=== PATIENT | female | born 1970 | race Hispanic/Latino ===

== ENCOUNTER 2021-01-22 22:57 | Inpatient (IN) | payer OTHER, SELFPAY ==
[2021-01-23 00:34] LABS: Absolute Lymphocytes (CBC) 1.8 K/uL (0.7-4.9); Basophils % 0.8 % (0-1.3); Hematocrit 32.8 % (36.0-45.0); Lymphocytes % 15.2 % (15.3-44.8); MPV 7.4 fL (7.6-11.3); RBC Red Blood Cell Count 4.16 M/uL (3.86-4.86)
[2021-01-23 00:48] LABS: Protime INR 1.34
[2021-01-23] MEDS ORDERED: NA CHLORIDE 0.9% 2,000 ML ONE (01:00)
[2021-01-23] MEDS ORDERED: ACETAMINOPHEN 500 MG TAB ONE (01:00)
[2021-01-23] MEDS ORDERED: NA CHLORIDE 0.9% 500 ML ONE (01:00)
[2021-01-23] MEDS ORDERED: METHYLPREDNISOLONE 125 MG INJ ONE ×2 (01:00→12:55)
[2021-01-23 01:05] LABS: ALT/SGPT 29 U/L (12-78); AST/SGOT 33 U/L (15-37); Albumin 2.7 g/dL (3.4-5.0); Alkaline Phosphatase 92 U/L (45-117); BUN Blood Urea Nitrogen 17 mg/dL (7-18); Bicarbonate 26 mmol/L (21-32); Bilirubin Direct 0.3 mg/dL (0-0.2); Bilirubin Total 0.7 mg/dL (0.2-1.0); Ferritin 83.4 ng/mL (8-388); Glucose Level 356 mg/dL (74-106); Magnesium 2.4 mg/dL (1.8-2.4); NT PRO-BNP 1149 pg/mL (<125); Protein, Total 8.9 g/dL (6.4-8.2); Sodium Level 128 mmol/L (136-145); Troponin (Emerg Dept Use Only) < 0.02 ng/mL (0.0-0.045)
[2021-01-23 01:28] LABS: Blood Morphology Comment NOTED (NOT SEEN); Platelet Estimate ADEQ; Polychromasia 1+
[2021-01-23] MEDS ORDERED: NA CHLORIDE 0.9% 50 ML ONE (02:18)
[2021-01-23] MEDS ORDERED: CEFTRIAXONE 1000 MG/VIAL ONE (02:18)
[2021-01-23] MEDS ORDERED: NA CHLORIDE 0.9% 250 ML ONE (02:18)
[2021-01-23] MEDS ORDERED: AZITHROMYCIN 500 MG INJ IVPB ONE (02:18)
--- NOTE | 2021-01-23 02:40 | ER ---
Nurse's Notes [facility] Name: Dina Alcantar Age: 50 yrs Sex: Female : 1970 Arrival Date: 01/22/2021 Time: 22:59 Bed 8 Private MD: Diagnosis: Acute respiratory failure with hypoxia;SARS-associated coronavirus as the cause of diseases classified elsewhere;Pneumonia due to other specified infectious organisms Presentation: 01/23 00:08 Chief complaint: Patient states: SOB, Chest pain, cough, weakness x 5 days. Coronavirus kg screen: Client denies travel out of the [place] in the last 14 days. At this time, unable to obtain information related to travel outside the [place] Client presents with at least one sign or symptom that may indicate coronavirus-19. Standard/surgical mask placed on the client. Provider contacted for isolation considerations. Client reports previous positive COVID test result. Date of collection: January 12, 2021. Ebola Screen: Patient negative for fever greater than or equal to 101.5 degrees Fahrenheit, and additional compatible Ebola Virus Disease symptoms Patient denies exposure to infectious person. Patient denies travel to an Ebola-affected area in the 21 days before illness onset. Initial Sepsis Screen: Does the patient meet any 2 criteria? RR > 20 per min. Temp <36.0*C (96.8*F)) or > 38.3*C (100.9*F). HR > 90 bpm. Does the patient have a suspected source of infection? Yes: Productive cough/pneumonia. Risk Assessment: Do you want to hurt yourself or someone else? Patient reports no desire to harm self or others. 00:08 Method Of Arrival: Wheelchair kg 00:08 Acuity: FERNANDO 2 kg 00:12 Onset of symptoms was January 18, 2021. kg Triage Assessment: 05:48 General: Appears distressed, Behavior is calm, cooperative. Pain: Denies pain. ms4 Cardiovascular: No deficits noted. Respiratory: Reports shortness of breath cough that is. Historical: - Allergies: 01:04 No Known Allergies; sh9 - Immunization history:: Client reports having NOT received the Covid vaccine. - Social history:: Smoking status: Patient denies any tobacco usage or history of. Screenin:51 Abuse screen: Denies threats or abuse. Denies injuries from another. Nutritional ms4 screening: No deficits noted. Tuberculosis screening: No symptoms or risk factors identified. Fall Risk None identified. Assessment: 01:49 Pain: Denies pain. Cardiovascular: No deficits noted. Respiratory: Reports shortness of ms4 breath labored breathing. Vital Signs: 00:08 BP 94 / 62; Pulse 102; Temp 102.9(O); Pulse Ox 47% on R/A; Weight 83.91 kg (R); Height kg 5 ft. 4 in. (162.56 cm) (R); Pain 7/10; 00:14 Pulse Ox 88% on 15 lpm NC; kg 01:50 BP 105 / 61; Pulse 90; Resp 22; Temp 99.1; Pulse Ox 92% on BiPAP; Pain 0/10; ms4 02:49 BP 104 / 67; Pulse 84; Resp 28; Pulse Ox 90% on BiPAP; Pain 0/10; ms4 00:08 Body Mass Index 31.75 (83.91 kg, 162.56 cm) kg ED Course: 01/22 22:59 Patient arrived in ED. bp1 01/23 00:12 Triage completed. kg 00:19 Juan Genao PA is PHCP. cp 00:19 Manuel Rae MD is Attending Physician. cp 00:21 Sharri Vargas, ARIAS is Primary Nurse. sh9 00:40 XRAY Chest (1 view) In Process Unspecified. EDMS 01:51 No provider procedures requiring assistance completed. Inserted saline lock: 20 gauge ms4 in right antecubital area, using aseptic technique. Blood collected. 01:51 O2 via BIPAP Response to oxygen therapy: symptoms improved. ms4 01:51 Patient has correct armband on for positive identification. satellite project site monitor on. Pulse ms4 ox on. NIBP on. 01:54 CT Chest For PE Angio In Process Unspecified. EDMS 02:38 Kirk Sharpe is Hospitalizing Provider. cp Administered Medications: 00:48 Drug: Tylenol 1000 mg Route: PO; sh9 00:48 Drug: NS 0.9% (30 ml/kg) 30 ml/kg Route: IV; Rate: bolus; Site: right antecubital; sh9 00:48 Drug: SOLU-Medrol (methylPrednisoLONE) 125 mg Route: IVP; Site: right antecubital; sh9 02:10 Drug: Rocephin - (cefTRIAXone) 1 grams Route: IVPB; Infused Over: 30 mins; Site: right ms4 antecubital; 02:10 Drug: Zithromax (azithromycin) 500 mg Route: IVPB; Infused Over: 1 hrs; Site: right ms4 antecubital; Outcome: 02:40 Decision to Hospitalize by Provider. cp 15:06 Patient left the ED. bp Signatures: Dispatcher [employer] EDMS Juan Genao PA PA cp Randall Guzman RN RN bp Serena Pierce Kristen, RN RN kg Karen Rausch RN RN ms4 Sharri Vargas RN RN sh9
--- NOTE | 2021-01-23 02:41 | EDPHYS ---
Physician Documentation [facility] Name: Dina Alcantar Age: 50 yrs Sex: Female : 1970 Arrival Date: 01/22/2021 Time: 22:59 Bed 8 Private MD: ED Physician Manuel Rae HPI: 01/23 00:30 This 50 yrs old Female presents to ER via Wheelchair with complaints of Chest cp Pain, Weakness. 00:30 The patient has shortness of breath at rest. cp 00:30 Onset: The symptoms/episode began/occurred 5 day(s) ago. cp 00:30 Duration: The symptoms are continuous, and are steadily getting worse. cp Historical: - Allergies: 01:04 No Known Allergies; sh9 - Immunization history:: Client reports having NOT received the Covid vaccine. - Social history:: Smoking status: Patient denies any tobacco usage or history of. ROS: 00:35 Constitutional: Positive for body aches, Negative for chills, fever, poor PO intake. cp 00:35 Eyes: Negative for injury, pain, redness, and discharge. cp 00:35 ENT: Negative for ear pain, sore throat, difficulty swallowing, difficulty handling secretions. 00:35 Cardiovascular: Positive for chest pain, Negative for edema, palpitations. 00:35 Respiratory: Positive for cough, "sounds productive", shortness of breath, at rest. Negative for wheezing. 00:35 Abdomen/GI: Negative for abdominal pain, nausea, vomiting, and diarrhea. 00:35 Neuro: Positive for weakness, Negative for altered mental status, dizziness, headache. 00:35 All other systems are negative. Exam: 00:37 ECG was reviewed by the Attending Physician. cp 00:40 Constitutional: The patient appears alert, awake, non-diaphoretic, well developed, well cp nourished, in obvious distress, moderately distressed, obviously ill. 00:40 Head/Face: Normocephalic, atraumatic. cp 00:40 Eyes: Periorbital structures: appear normal, Conjunctiva: normal, no exudate, no injection, Sclera: no appreciated abnormality, Lids and lashes: appear normal, bilaterally. 00:40 ENT: External ear(s): are unremarkable, Nose: is normal, Mouth: Lips: moist, Oral mucosa: moist, Posterior pharynx: Airway: no evidence of obstruction, patent. 00:40 Neck: ROM/movement: is normal, is supple, no meningismus, no nuchal rigidity. 00:40 Chest/axilla: Inspection: normal, Palpation: is normal, no crepitus, no tenderness. 00:40 Cardiovascular: Rate: tachycardic, Rhythm: regular, Edema: is not appreciated, JVD: is not appreciated. 00:40 Respiratory: moderate respiratory distress is noted, Respirations: labored breathing, that is moderate, shallow respirations, that is moderate, Breath sounds: decreased breath sounds, that are mild, diffuse, stridor, is not appreciated, wheezing: is not appreciated. 00:40 Abdomen/GI: Inspection: abdomen appears normal, Palpation: abdomen is soft and non-tender, in all quadrants. 00:40 Back: CVA tenderness, is absent. 00:40 Skin: no rash present. 00:40 Neuro: Orientation: to person, place \\T\\ time. Mentation: is normal, Motor: moves all fours, general weakness with no focal deficits, Sensation: is normal. Vital Signs: 00:08 BP 94 / 62; Pulse 102; Temp 102.9(O); Pulse Ox 47% on R/A; Weight 83.91 kg (R); Height kg 5 ft. 4 in. (162.56 cm) (R); Pain 7/10; 00:14 Pulse Ox 88% on 15 lpm NC; kg 01:50 BP 105 / 61; Pulse 90; Resp 22; Temp 99.1; Pulse Ox 92% on BiPAP; Pain 0/10; ms4 02:49 BP 104 / 67; Pulse 84; Resp 28; Pulse Ox 90% on BiPAP; Pain 0/10; ms4 00:08 Body Mass Index 31.75 (83.91 kg, 162.56 cm) kg MDM: 00:30 Patient medically screened. cp 02:35 Data reviewed: vital signs, nurses notes, lab test result(s), EKG, radiologic studies, cp CT scan, plain films, and as a result, I will admit patient. 02:35 Test interpretation: by ED physician or midlevel provider: ECG, plain radiologic cp studies. 01/23 00:20 Order name: Basic Metabolic Panel; Complete Time: 01:23 cp 01/23 01:23 Interpretation: Normal except: NA 128; CL 96; GLUC 356; GFR 49; CA 7.9. cp 01/23 00:20 Order name: CBC with Diff; Complete Time: : cp 01/23 01:24 Interpretation: Normal except: WBC 12.10; HGB 10.5; HCT 32.8; MCV 78.8; MCH 25.3; PLT cp 440; RDW 17.3; MPV 7.4; LONDON% 77.7; LYM% 15.2; NEUT A 9.4. 01/23 00:20 Order name: LFT's; Complete Time: 01: cp 01/23 02:13 Interpretation: Normal except: BILID 0.3; TP 8.9; ALB 2.7; GLOB 6.2; A/G 0.4. cp 01/23 00:20 Order name: Magnesium; Complete Time: 01: cp 01/23 00:20 Order name: NT PRO-BNP; Complete Time: 01: cp 01/23 02:13 Interpretation: Abnormal: NT PRO-BNP 1149. cp 01/23 00:20 Order name: PT-INR; Complete Time: : cp 01/23 00:20 Order name: Troponin (emerg Dept Use Only); Complete Time: : cp 01/23 00:20 Order name: Ferritin; Complete Time: : cp 01/23 00:33 Order name: Blood Culture Adult (2); Complete Time: 13:02 cp 01/23 00:33 Order name: Lactate; Complete Time: : cp 01/23 01:23 Interpretation: Abnormal: LAC 2.3. cp 01/23 00:33 Order name: Procalcitonin; Complete Time: : cp 01/23 02:14 Interpretation: Abnormal: Procalcitonin 0.32. cp 01/23 00:33 Order name: Urine Microscopic Only cp 01/23 00:42 Order name: C-Reactive Protein; Complete Time: : EDMS 01/23 02:14 Interpretation: Abnormal: C-REACTIVE PROT 238.00. cp 01/23 00:43 Order name: Manual Differential; Complete Time: : EDMS 01/23 02:14 Interpretation: Normal except: BANDS [F] 7; LYM 9. cp 01/23 01:23 Order name: ABG; Complete Time: 13:02 01/23 01:42 Order name: SARS-COV-2 RT PCR; Complete Time: 02:05 [facility] 01/23 02:05 Interpretation: Results reviewed. 01/23 04:00 Order name: Lactate Sepsis 2 HR Follow-up; Complete Time: 13:02 [facility] 01/23 05:20 Order name: CBC with Automated Diff; Complete Time: 13:02 [facility] 01/23 05:31 Order name: Lactate; Complete Time: 13:02 [facility] 01/23 05:55 Order name: T4 Free; Complete Time: 13:02 [facility] 01/23 05:55 Order name: Thyroid Stimulating Hormone; Complete Time: 13:02 [facility] 01/23 05:57 Order name: Hemoglobin A1c; Complete Time: 13:02 [facility] 01/23 06:10 Order name: Procalcitonin; Complete Time: 13:02 [facility] 01/23 06:13 Order name: Comprehensive Metabolic Panel; Complete Time: 13:02 [facility] 01/23 00:20 Order name: XRAY Chest (1 view); Complete Time: 13:02 01/23 00:20 Order name: EKG; Complete Time: 00:21 01/23 00:20 Order name: Cardiac monitoring 01/23 00:20 Order name: EKG - Nurse/Tech 01/23 00:20 Order name: IV Saline Lock 01/23 00:20 Order name: Labs collected and sent 01/23 00:20 Order name: O2 Per Protocol 01/23 00:20 Order name: O2 Sat Monitoring 01/23 00:33 Order name: Urine Dipstick-Ancillary (obtain specimen) 01/23 00:33 Order name: Urine Test (obtain specimen) 01/23 00:33 Order name: CT Chest For PE Angio; Complete Time: 13:02 01/23 02:20 Order name: CONS Physician Consult [facility] 01/23 03:48 Order name: CPAP 01/23 06:13 Order name: Phosphorus; Complete Time: 13:02 [facility] 01/23 06:13 Order name: Lipid Profile; Complete Time: 13:02 [facility] 01/23 06:13 Order name: C-Reactive Protein; Complete Time: 13:02 [facility] 01/23 06:13 Order name: Magnesium; Complete Time: 13:02 [facility] 01/23 06:13 Order name: Transferrin Sat/Iron Binding; Complete Time: 13:02 EDMS 01/23 06:13 Order name: Ferritin; Complete Time: 13: EDMS 01/23 06:13 Order name: Folic Acid, (Folate); Complete Time: 13:02 EDMS 01/23 06:13 Order name: Vitamin B12 Level; Complete Time: 13: EDMS 01/23 07:54 Order name: Glucose, Ancillary Testing; Complete Time: 13: EDMS 01/23 08:55 Order name: Glucose Level; Complete Time: 13: EDMS EC:37 Rate is 104 beats/min. Rhythm is regular. [place] interval is normal. QRS interval is cp normal. QT interval is normal. T waves are Inverted in lead aVR. Interpreted by me. Reviewed by me. Administered Medications: 00:48 Drug: Tylenol 1000 mg Route: PO; sh9 00:48 Drug: NS 0.9% (30 ml/kg) 30 ml/kg Route: IV; Rate: bolus; Site: right antecubital; sh9 00:48 Drug: SOLU-Medrol (methylPrednisoLONE) 125 mg Route: IVP; Site: right antecubital; sh9 02:10 Drug: Rocephin - (cefTRIAXone) 1 grams Route: IVPB; Infused Over: 30 mins; Site: right ms4 antecubital; 02:10 Drug: Zithromax (azithromycin) 500 mg Route: IVPB; Infused Over: 1 hrs; Site: right ms4 antecubital; Disposition: 01/24 13:01 Co-signature as Attending Physician, Manuel Rae MD. pknellie Disposition Summary: 01/23/21 02:40 Hospitalization Ordered Hospitalization Status: Inpatient Admission cp Provider: Kirk Sharpe cp Condition: Serious cp Problem: new cp Symptoms: have improved cp Bed/Room Type: Standard cp Location: Intensive Care Unit(01/23/21 05:52) tl1 Room Assignment: 2-(01/23/21 05:52) tl1 Diagnosis - Acute respiratory failure with hypoxia cp - SARS-associated coronavirus as the cause of diseases classified elsewhere cp - Pneumonia due to other specified infectious organisms cp Forms: - Medication Reconciliation Form cp - SBAR form cp Signatures: Dispatcher [employer] EDAR Manuel Rae MD MD pkl Lasagna, Tonya, RN RN tl1 Juan Genao PA PA cp Stroud, Mikaela RN RN ms4 Sharri Vargas RN RN sh9 Corrections: (The following items were deleted from the chart) 01/23 00:41 00:34 C-REACTIVE PROTEIN+C.LAB.BRZ ordered. EDMS EDMS 00:56 00:14 CORONAVIRUS+MR.LAB.BRZ ordered. EDMS EDMS 05:02 02:40 Telemetry/MedSurg (Inpatient) cp tl1 05:02 02:40 cp tl1 05:52 05:02 [facility] ER HOLD tl1 tl1 05:52 05:02 ERHOLD- tl1 tl1
[2021-01-23 02:46] LABS: Arterial Blood Carboxyhemoglob 1.8 % (0-1.5); Blood Gas Oxyhemoglobin 88.1 % (94-97); Blood O2 Saturation 90.5 % (92-98.5)
--- NOTE | 2021-01-23 03:05 | P.HP ---
Certification for Inpatient Patient admitted to: Inpatient With expected LOS: >2 Midnights Patient will require the following post-hospital care: None Practitioner: I am a practitioner with admitting privileges, knowledge of patient current condition, hospital course, and medical plan of care. Services: Services provided to patient in accordance with Admission requirements found in Title 42 Section 412.3 of the Code of Federal Regulations Patient History Date of Service: 01/23/21 Reason for admission: covid pneumonia History of Present Illness: Ms. Alcantar is a 50 yo F who presents with general malaise and diarrhea, and RA sats of 47% and T103F on arrival. Her symptoms began a few days ago and she was diagnosed with COVID around the same time. She came today because her daughter wanted her to get checked out. Reports poor appetite. Denies SOB, cough, N/V. CT showed extensive bilateral ground glass opacities with multifocal consolidation and small left pleural effusion, findings suggestive of atypical/multifocal pneumonia and compatible with covid. No evidence of pulmonary embolism. WBC 12.1, H/H 10.5, MCV 78.8, Na 128, Cl 96, GFR 49, Glu 356, Lactate 2.3, CRP 238, BNP 1149, procal 0.32. Received sepsis protocol fluid bolus, ceftriaxone and azithromycin and steroids in the ED. - Past Medical/Surgical History Has patient received pneumonia vaccine in the past: No Diabetic: No Past Medical History: Patient denies medical history -: C section - Social History Smoking Status: Never smoker Alcohol use: No CD- Drugs: No Caffeine use: No Place of Residence: Home Review of Systems 10-point ROS is otherwise unremarkable General: Malaise Gastrointestinal: Diarrhea Physical Examination - Physical Exam General: Alert, Oriented x3, Cooperative HEENT: Atraumatic, PERRLA, Mucous membr. moist/pink, EOMI, Sclerae nonicteric Neck: Supple, 2+ carotid pulse no bruit, No LAD, Without JVD or thyroid abnormality Respiratory: Diminished, Rhonchi/gurgles Cardiovascular: Regular rate/rhythm, Normal S1 S2 Gastrointestinal: Normal bowel sounds, No tenderness Musculoskeletal: No tenderness Integumentary: No rashes Neurological: Normal speech, Normal strength at 5/5 x4 extr, Normal tone, Normal affect - Studies Laboratory Data (last 24 hrs) 01/23/21 00:09: PT 15.4 H, INR 1.34 01/23/21 00:09: WBC 12.10 H, Hgb 10.5 L, Hct 32.8 L, Plt Count 440 H 01/23/21 00:09: Sodium 128 L, Potassium 4.0, BUN 17, Creatinine 1.17, Glucose 356 H, Magnesium 2.4, Total Bilirubin 0.7, AST 33, ALT 29, Alkaline Phosphatase 92 Assessment and Plan - Problems (Diagnosis) (1) Pneumonia due to COVID-19 virus Current Visit: Yes Status: Acute (2) Hyperglycemia Current Visit: Yes Status: Acute (3) Anemia Current Visit: Yes Status: Chronic Qualifiers: Anemia type: iron deficiency Iron deficiency anemia type: unspecified iron deficiency Qualified Code(s): D50.9 - Iron deficiency anemia, unspecified (4) Dehydration Current Visit: Yes Status: Acute (5) Pleural effusion Current Visit: Yes Status: Acute - Plan pulm consulted, respiratory consulted, currently stable on CPAP on tele continue IV steroids, covid supplements, ivermectin barictinib ordered daily procal, CRP, ferritin, repeat lactate pending tylenol PRN for fever sliding scale insulin and accuchecks, A1c pending anemia workup pending DVT ppx Discharge Plan: Home Plan to discharge in: Greater than 2 days - Advance Directives Does patient have a Living Will: No Does patient have a Durable POA for Healthcare: No - Code Status/Comfort Care Code Status Assessed: Yes (full code ) Critical Care: No Time Spent Managing Pts Care (In Minutes): 70
--- NOTE | 2021-01-23 03:12 | P.INFCA ---
Sepsis Focused Assessment - Focused Assessment Complete? Sepsis Focused Assessment Completed?: Yes - Sepsis Screen Result Severe Sepsis: Negative Septic Shock: Negative - Evaluation Current stage of sepsis: Ruled out Reason for ruling out sepsis: vitals improved - Vital Signs Reviewed: Yes - Examination Heart: Regular rate/rhythm Lungs: Diminished air movement, Rhonchi Peripheral pulses: 3+ Normal Peripheral pulse location: Radial Capillary refill: <2 Seconds Skin examination: Normal turgor
[2021-01-23] MEDS ORDERED: IVERMECTIN 3 MG TABLET PO SCH (04:14)
[2021-01-23] MEDS ORDERED: ACETAMINOPHEN 500 MG TAB PO PRN (04:14)
[2021-01-23] MEDS ORDERED: ONDANSETRON 4 MG/2 ML VIAL IV PRN (04:14)
[2021-01-23] MEDS ORDERED: MORPHINE 2 MG/ML SYR IV PRN ×2 (04:14→14:00)
[2021-01-23 05:17] LABS: Basophils % 0.5 % (0-1.3); Lymphocytes % 10.2 % (15.3-44.8); MPV 7.4 fL (7.6-11.3)
[2021-01-23 05:55] LABS: Thyroid Stimulating Hormone 11.2 uIU/mL (0.360-3.740)
[2021-01-23 06:06] LABS: Albumin 2.2 g/dL (3.4-5.0); Bilirubin Total 0.6 mg/dL (0.2-1.0); Ferritin 83.6 ng/mL (8-388); Folic Acid, (Folate) 19.8 ng/mL (3.1-17.5); Magnesium 2.2 mg/dL (1.8-2.4); Phosphorus 2.4 mg/dL (2.5-4.9); Potassium 3.9 mmol/L (3.5-5.1); Protein, Total 7.1 g/dL (6.4-8.2)
[2021-01-23] MEDS ORDERED: INSULIN -REGULAR HUMAN 50 UNIT/0.5 ML ML SQ SCH (07:30)
--- NOTE | 2021-01-23 08:59 | RAD REPORT ---
EXAM DESCRIPTION: RAD - Chest Single View - 01/23/2021 12:40 am CLINICAL HISTORY: SOB Chest pain. COMPARISON: No comparisons FINDINGS: Portable technique limits examination quality. Extensive bilateral pulmonary opacities are present likely indicating underlying pneumonia or COVID-1 9. The heart is normal in size. No displaced fractures.
[2021-01-23] MEDS: ZINC SULFATE 220 MG CAP PO SCH (09:00)
[2021-01-23] MEDS: METHYLPREDNISOLONE 125 MG INJ IV SCH ×2 (09:00→20:14)
[2021-01-23] MEDS: VITAMIN D 1000 UNIT TAB PO SCH (09:00)
[2021-01-23] MEDS: ASPIRIN EC 81 MG TAB PO SCH (09:00)
[2021-01-23] MEDS: FAMOTIDINE 20 MG TAB PO SCH ×2 (09:00→20:11)
[2021-01-23] MEDS: BARICITINIB 2 MG TABLET PO SCH (09:00)
[2021-01-23] MEDS: IVERMECTIN 3 MG TABLET PO SCH (09:00)
[2021-01-23] MEDS: ASCORBIC ACID 500 MG TABLET PO SCH ×4 (09:00→20:12)
[2021-01-23] MEDS: THIAMINE HCL 100 MG TABLET PO SCH (09:00)
[2021-01-23] MEDS ORDERED: GLUCAGON 1 MG/VIAL IM PRN (10:24)
[2021-01-23] MEDS ORDERED: D50W 25 GM/50 ML SYRINGE IV PRN (10:24)
[2021-01-23] MEDS: INSULIN GLARGINE 100 UNITS/ML SQ SCH ×2 (10:24→21:31)
[2021-01-23] MEDS ORDERED: CALCIUM GLUC 10% INJ 9.3 MEQ in NA CHLORIDE 0.9% 100 ML IV ONE (10:26)
--- NOTE | 2021-01-23 11:45 | RAD REPORT ---
EXAM DESCRIPTION: CT Angiography Chest With Intravenous Contrast CLINICAL HISTORY: The patient is 50 years old and is Female; SOB TECHNIQUE: Axial computed tomographic angiography images of the chest with intravenous contrast. S agittal and coronal reformatted images were created and reviewed. This CT exam was performed using one or more of the following dose reduction techniques: automated exposure control, adjustment of t he mA and/or kV according to patient size, and/or use of iterative reconstruction technique. MIP re constructed images were created and reviewed. COMPARISON: No relevant prior studies available. FINDINGS: Pulmonary arteries: Unremarkable. No pulmonary embolism. Aorta: No acute findings. No thoracic aortic aneurysm. Lungs: Unremarkable. No mass. No consolidation. Pleural space: Extensive bilateral groundglass opacities with multifocal consolidation. Small le ft pleural effusion. No pneumothorax. Heart: Unremarkable. No cardiomegaly. No significant pericardial effusion. No evidence of RV dysfunction. Mediastinum: Prominent/mildly enlarged mediastinal lymph nodes which may be reactive. Bones/joints: No acute fracture. No dislocation. Soft tissues: Unremarkable. Lymph nodes: See above. IMPRESSION: 1. Extensive bilateral groundglass opacities with multifocal consolidation. Small left pleural effusion. Findings are suggestive of atypical/multifocal pneumonia and compatible with Cov id. 2. Prominent/mildly enlarged mediastinal lymph nodes which may be reactive. 3. No evidence of pulmonary embolism. Electronically signed by: Ilya Richard MD 01/23/2021 2:36 AM CDT Due to temporary technical issues with the PACS/Fluency reporting system, reports are being signed by the in house radiologist without review as a courtesy to ensure prompt reporting. The interpreting r adiologist is fully responsible for the content of the report.
--- NOTE | 2021-01-23 12:46 | P.PN ---
Subjective Date of Service: 01/23/21 Chief Complaint: covid pneumonia Subjective: Improving (feels better, less fatigued. breathing is about the same. on BiPAP) Review of Systems 10-point ROS is otherwise unremarkable Physical Examination - Vital Signs Blood Pressure: 98/67 Pulse: 81 Respirations: 24 Pulse Ox (%): 91 - Physical Exam General: Alert, Oriented x3, Cooperative HEENT: Atraumatic, Normocephalic Neck: Supple Respiratory: Diminished, Other (on BiPAP) Cardiovascular: Regular rate/rhythm, Normal S1 S2 Capillary refill: <2 Seconds Gastrointestinal: Normal bowel sounds, Soft and benign, Non-distended, No tenderness Musculoskeletal: No clubbing, No swelling Integumentary: No rashes, No breakdown Neurological: Normal speech, Normal tone, Normal affect - Studies Laboratory Data (last 24 hrs) 01/23/21 00:09: PT 15.4 H, INR 1.34 01/23/21 00:09: WBC 12.10 H, Hgb 10.5 L, Hct 32.8 L, Plt Count 440 H 01/23/21 00:09: Sodium 128 L, Potassium 4.0, BUN 17, Creatinine 1.17, Glucose 356 H, Magnesium 2.4, Total Bilirubin 0.7, AST 33, ALT 29, Alkaline Phosphatase 92 Assessment And Plan - Current Problems (Diagnosis) (1) Pneumonia due to COVID-19 virus Current Visit: Yes Status: Acute (2) Hyperglycemia Current Visit: Yes Status: Acute (3) Anemia Current Visit: Yes Status: Chronic Qualifiers: Anemia type: iron deficiency Iron deficiency anemia type: unspecified iron deficiency Qualified Code(s): D50.9 - Iron deficiency anemia, unspecified - Plan pulm consulted, respiratory consulted, on BiPAP now on tele continue IV steroids, covid supplements, ivermectin barictinib ordered trend inflammatory markers tylenol PRN for fever sliding scale insulin and accuchecks, A1c >13.9. pt is insulin naive. start lantus and titrate as needed iron supplement started DVT ppx Discharge Plan: Home Plan to discharge in: Greater than 2 days - Code Status/Comfort Care Code Status Assessed: Yes Code Status: Full Code Time Spent Managing PTS Care (In Minutes): 35
--- NOTE | 2021-01-23 12:53 | P.CNS ---
Date of Consult: 01/23/21 Reason for Consult: Coronavirus pneumonia Chief Complaint: covid pneumonia History of Present Illness: Patient is 50 years of age admitted with general malaise diarrhea hypoxemia symptoms started a few days ago was diagnosed with Covid as poor appetite CT scan consistent with coronavirus pneumonia Allergies No Known Allergies Allergy (Unverified 01/23/21 03:59) - Past Medical/Surgical History Diabetic: No -: C section - Social History Alcohol use: No CD- Drugs: No Caffeine use: No Place of Residence: Home Review of Systems General: Malaise Gastrointestinal: Diarrhea Physical Examination Temp Pulse Resp BP Pulse Ox 81 24 H 98/67 91 01/23/21 12:47 01/23/21 12:47 01/23/21 12:47 01/23/21 12:47 General: Alert, Oriented x3, Cooperative Laboratory Data (last 24 hrs) 01/23/21 00:09: PT 15.4 H, INR 1.34 01/23/21 00:09: WBC 12.10 H, Hgb 10.5 L, Hct 32.8 L, Plt Count 440 H 01/23/21 00:09: Sodium 128 L, Potassium 4.0, BUN 17, Creatinine 1.17, Glucose 356 H, Magnesium 2.4, Total Bilirubin 0.7, AST 33, ALT 29, Alkaline Phosphatase 92 - Problems (1) Pneumonia due to COVID-19 virus Current Visit: Yes Status: Acute Plan: Age 50 admitted with coronavirus pneumonia and diarrhea she is on 75% FiO2 all labs reviewed agree with the present management including use of steroids and Barcitinib
[2021-01-23] MEDS ORDERED: ASCORBIC ACID 500 MG TABLET ONE (12:55)
[2021-01-23] MEDS ORDERED: VITAMIN D 1000 UNIT TAB ONE (12:56)
[2021-01-23] MEDS ORDERED: ZINC SULFATE 220 MG CAP ONE (12:56)
[2021-01-23] MEDS ORDERED: THIAMINE HCL 100 MG TABLET ONE (12:56)
[2021-01-23] MEDS ORDERED: ASPIRIN EC 81 MG TAB PO ONE (12:56)
[2021-01-23] MEDS ORDERED: INSULIN GLARGINE 100 UNITS/ML SQ ONE (12:56)
[2021-01-23] MEDS ORDERED: FAMOTIDINE 20 MG TAB ONE (12:57)
[2021-01-23] MEDS ORDERED: CALCIUM GLUCONATE 1 GM IVPB 1 GM/50 ML BAG IV ONE (12:57)
[2021-01-23] MEDS: RIVAROXABAN 20 MG TABLET PO SCH (16:45)
[2021-01-23] MEDS: INSULIN -REGULAR HUMAN 50 UNIT/0.5 ML ML SQ SCH ×2 (16:47→21:30)
[2021-01-23] MEDS ORDERED: RIVAROXABAN 20 MG TABLET PO SCH (17:00)
[2021-01-23 17:04] LABS: Urine Appearance CLEAR (Clear); Urine Bilirubin NEGATIVE (Negative); Urine Blood 3+ (Negative); Urine Color YELLOW (Yellow); Urine Glucose 3+ (Negative); Urine Protein NEGATIVE (Negative); Urine Specific Gravity 1.025 (1.005-1.030)
[2021-01-23 17:10] LABS: Urine Microscopic Reflex ORDER UMIC
[2021-01-23 17:13] LABS: Urine Bacteria <20 /HPF (<20); Urine Mucus 1+ /HPF (NONE SEEN)
[2021-01-23] MEDS: FERROUS SULFATE 325 MG TAB PO SCH (20:11)
[2021-01-24 06:22] LABS: Absolute Lymphocytes (CBC) 0.9 K/uL (0.7-4.9); Basophils % 0.2 % (0-1.3); Hematocrit 26.5 % (36.0-45.0); Lymphocytes % 9.3 % (15.3-44.8); MPV 7.7 fL (7.6-11.3); RBC Red Blood Cell Count 3.33 M/uL (3.86-4.86)
[2021-01-24 06:25] VITALS: BMI 35.4
[2021-01-24 06:56] LABS: Albumin 2.2 g/dL (3.4-5.0); Bilirubin Total 0.3 mg/dL (0.2-1.0); Phosphorus 1.6 mg/dL (2.5-4.9); Potassium 3.9 mmol/L (3.5-5.1); Protein, Total 7.2 g/dL (6.4-8.2)
[2021-01-24 06:57] LABS: Magnesium 2.9 mg/dL (1.8-2.4)
[2021-01-24] MEDS: INSULIN -REGULAR HUMAN 50 UNIT/0.5 ML ML SQ SCH ×4 (09:54→20:30)
[2021-01-24] MEDS: ZINC SULFATE 220 MG CAP PO SCH (09:57)
[2021-01-24] MEDS: FAMOTIDINE 20 MG TAB PO SCH ×2 (09:57→20:31)
[2021-01-24] MEDS: THIAMINE HCL 100 MG TABLET PO SCH (09:57)
[2021-01-24] MEDS: ASCORBIC ACID 500 MG TABLET PO SCH ×4 (09:57→20:31)
[2021-01-24] MEDS: ASPIRIN EC 81 MG TAB PO SCH (09:57)
[2021-01-24] MEDS: METHYLPREDNISOLONE 125 MG INJ IV SCH ×2 (10:04→20:29)
[2021-01-24] MEDS: VITAMIN D 1000 UNIT TAB PO SCH (10:04)
[2021-01-24] MEDS: FERROUS SULFATE 325 MG TAB PO SCH ×2 (10:04→20:31)
[2021-01-24] MEDS: BARICITINIB 2 MG TABLET PO SCH (10:09)
[2021-01-24] MEDS: BENZONATATE 100 MG CAP PO PRN ×2 (12:47→20:31)
--- NOTE | 2021-01-24 13:04 | P.PN ---
Subjective Date of Service: 01/24/21 Chief Complaint: covid pneumonia Patient currently requiring CPAP and 60% FiO2. Physical Examination - Vital Signs Temperature: 97.8 F Blood Pressure: 98/63 Pulse: 66 Respirations: 11 Pulse Ox (%): 94 - Physical Exam General: Oriented x3 Neck: JVD not distended Respiratory: Other (Mildly labored breathing) Cardiovascular: Regular rate/rhythm, Normal S1 S2 Gastrointestinal: Soft and benign, Non-distended Musculoskeletal: No swelling Integumentary: No rashes Neurological: Normal strength at 5/5 x4 extr, Cranial nerves 3-12 intact Assessment And Plan - Current Problems (Diagnosis) (1) Uncontrolled type 2 diabetes mellitus with hyperglycemia Current Visit: Yes Status: Acute (2) Acute respiratory failure with hypoxia Current Visit: Yes Status: Acute (3) Pneumonia due to COVID-19 virus Current Visit: Yes Status: Acute (4) Iron deficiency anemia Current Visit: Yes Status: Acute - Plan pulm input appreciated. Continue CPAP. continue IV steroids, covid supplements, ivermectin Continue barictinib. trend inflammatory markers tylenol PRN for fever sliding scale insulin and accuchecks, A1c >13.9. pt is insulin naive. Patient with severe hyperglycemia. Titrate insulin iron supplement started DVT ppx
--- NOTE | 2021-01-24 15:07 | P.PN ---
Subjective Date of Service: 01/24/21 Chief Complaint: covid pneumonia Subjective: Improving (Patient is feeling better still on high flow oxygen 15 L) Review of Systems General: Weakness Respiratory: Shortness of Breath Physical Examination - Vital Signs Temperature: 97.8 F Blood Pressure: 98/63 Pulse: 66 Respirations: 11 Pulse Ox (%): 94 - Physical Exam General: In no apparent distress, Oriented x3, Cooperative Assessment & Plan - Problems (Diagnosis) (1) Pneumonia due to COVID-19 virus Current Visit: Yes Status: Acute Plan: Respiratory failure subjectively feeling better on high flow oxygen patient is on steroids ivermectin and Barcitinib blood sugars elevated CT scan shows diffuse groundglass changes
[2021-01-24] MEDS: RIVAROXABAN 20 MG TABLET PO SCH (17:22)
[2021-01-24] MEDS: MELATONIN 5 MG TABLET PO PRN (20:31)
[2021-01-24] MEDS ORDERED: INSULIN GLARGINE 100 UNITS/ML SQ SCH ×2 (21:00)
[2021-01-25 05:20] LABS: Absolute Lymphocytes (CBC) 0.6 K/uL (0.7-4.9); Basophils % 0.2 % (0-1.3); Hematocrit 28.2 % (36.0-45.0); Lymphocytes % 5.9 % (15.3-44.8); MPV 7.8 fL (7.6-11.3); RBC Red Blood Cell Count 3.55 M/uL (3.86-4.86)
[2021-01-25 06:03] LABS: Albumin 2.3 g/dL (3.4-5.0); Bilirubin Total 0.3 mg/dL (0.2-1.0); C-Reactive Protein 81.4 mg/L (<3.00); Magnesium 3.2 mg/dL (1.8-2.4); Phosphorus 1.6 mg/dL (2.5-4.9); Potassium 4.1 mmol/L (3.5-5.1); Protein, Total 7.1 g/dL (6.4-8.2)
[2021-01-25] MEDS: INSULIN -REGULAR HUMAN 50 UNIT/0.5 ML ML SQ SCH ×4 (08:55→22:17)
[2021-01-25] MEDS: METHYLPREDNISOLONE 125 MG INJ IV SCH ×2 (08:56→22:15)
[2021-01-25] MEDS: INSULIN GLARGINE 100 UNITS/ML SQ SCH ×2 (08:56→22:15)
[2021-01-25] MEDS: VITAMIN D 1000 UNIT TAB PO SCH (08:56)
[2021-01-25] MEDS: BARICITINIB 2 MG TABLET PO SCH (08:57)
[2021-01-25] MEDS: ZINC SULFATE 220 MG CAP PO SCH (08:57)
[2021-01-25] MEDS: FERROUS SULFATE 325 MG TAB PO SCH ×2 (08:57→22:15)
[2021-01-25] MEDS: ASCORBIC ACID 500 MG TABLET PO SCH ×4 (08:57→22:15)
[2021-01-25] MEDS: THIAMINE HCL 100 MG TABLET PO SCH (08:57)
[2021-01-25] MEDS: FAMOTIDINE 20 MG TAB PO SCH ×2 (08:57→22:15)
[2021-01-25] MEDS: ASPIRIN EC 81 MG TAB PO SCH (08:58)
[2021-01-25] MEDS: IVERMECTIN 3 MG TABLET PO SCH (08:58)
[2021-01-25] MEDS: POTASS/SODIUM PHOSPHATE 1 PKT POWD.PACK PO SCH ×3 (11:00→16:13)
--- NOTE | 2021-01-25 11:08 | P.PN ---
Subjective Date of Service: 01/25/21 Chief Complaint: covid pneumonia Patient 's oxygen requirement is worsening. Currently on CPAP for 75% FiO2 Physical Examination - Vital Signs Temperature: 97.6 F Blood Pressure: 110/74 Pulse: 70 Respirations: 26 Pulse Ox (%): 87 - Physical Exam General: Alert, In no apparent distress HEENT: Other (CPAP) Respiratory: Other (Nonlabored breathing) Cardiovascular: Regular rate/rhythm, Normal S1 S2 Gastrointestinal: Soft and benign, Non-distended Musculoskeletal: No swelling Integumentary: No rashes Neurological: Normal strength at 5/5 x4 extr Assessment And Plan - Current Problems (Diagnosis) (1) Uncontrolled type 2 diabetes mellitus with hyperglycemia Current Visit: Yes Status: Acute (2) Acute respiratory failure with hypoxia Current Visit: Yes Status: Acute (3) Pneumonia due to COVID-19 virus Current Visit: Yes Status: Acute (4) Iron deficiency anemia Current Visit: Yes Status: Acute - Plan puContinue CPAP. Titrate FiO2 continue IV steroids, covid supplements, ivermectin Continue barictinib. trend inflammatory markers sliding scale insulin and accuchecks, A1c >13.9. pt is insulin naive. Patient with severe hyperglycemia. Lantus titrated up to 30 units bid. iron supplement started. Monitor and replete electrolytes as needed. Replete phosphorus. DVT ppx
[2021-01-25] MEDS ORDERED: POTASS/SODIUM PHOSPHATE 1 PKT POWD.PACK PO ONE (12:00)
[2021-01-25] MEDS: RIVAROXABAN 20 MG TABLET PO SCH (16:13)
[2021-01-26 06:29] LABS: Absolute Lymphocytes (CBC) 0.6 K/uL (0.7-4.9); Basophils % 0.2 % (0-1.3); Hematocrit 28.9 % (36.0-45.0); Lymphocytes % 5.2 % (15.3-44.8); MPV 7.7 fL (7.6-11.3); RBC Red Blood Cell Count 3.66 M/uL (3.86-4.86)
[2021-01-26 06:53] LABS: ALT/SGPT 37 U/L (12-78); AST/SGOT 55 U/L (15-37); Albumin 2.5 g/dL (3.4-5.0); Alkaline Phosphatase 219 U/L (45-117); BUN Blood Urea Nitrogen 20 mg/dL (7-18); Bicarbonate 28 mmol/L (21-32); Bilirubin Total 0.4 mg/dL (0.2-1.0); Glucose Level 318 mg/dL (74-106); Potassium 3.9 mmol/L (3.5-5.1); Protein, Total 7.2 g/dL (6.4-8.2); Sodium Level 140 mmol/L (136-145)
[2021-01-26] MEDS: ASCORBIC ACID 500 MG TABLET PO SCH ×4 (08:58→19:50)
[2021-01-26] MEDS: VITAMIN D 1000 UNIT TAB PO SCH (08:58)
[2021-01-26] MEDS: INSULIN GLARGINE 100 UNITS/ML SQ SCH ×2 (08:59→21:00)
[2021-01-26] MEDS: FERROUS SULFATE 325 MG TAB PO SCH ×2 (08:59→19:48)
[2021-01-26] MEDS: ZINC SULFATE 220 MG CAP PO SCH (08:59)
[2021-01-26] MEDS: FAMOTIDINE 20 MG TAB PO SCH ×2 (08:59→19:48)
[2021-01-26] MEDS: THIAMINE HCL 100 MG TABLET PO SCH (08:59)
[2021-01-26] MEDS ORDERED: POTASSIUM CL SA 10 MEQ TAB PO ONE (09:00)
[2021-01-26] MEDS: INSULIN -REGULAR HUMAN 50 UNIT/0.5 ML ML SQ SCH ×4 (09:11→21:15)
[2021-01-26] MEDS: BENZONATATE 100 MG CAP PO PRN ×2 (10:41→19:51)
[2021-01-26] MEDS: ASPIRIN EC 81 MG TAB PO SCH (10:41)
[2021-01-26] MEDS: METHYLPREDNISOLONE 125 MG INJ IV SCH ×2 (10:41→19:48)
--- NOTE | 2021-01-26 11:21 | P.PN ---
Subjective Date of Service: 01/26/21 Chief Complaint: covid pneumonia No change still on high concentrations of oxygen Review of Systems General: Weakness Respiratory: Shortness of Breath Physical Examination - Vital Signs Temperature: 97.3 F Blood Pressure: 106/62 Pulse: 83 Respirations: 23 Pulse Ox (%): 90 - Physical Exam General: Alert, Oriented x3, Cooperative Assessment & Plan - Problems (Diagnosis) (1) Pneumonia due to COVID-19 virus Current Visit: Yes Status: Acute Plan: Respiratory failure will on high concentrations of oxygen labs reviewed on max therapy
--- NOTE | 2021-01-26 12:14 | P.PN ---
Subjective Date of Service: 01/26/21 Chief Complaint: covid pneumonia Patient maintained on CPAP with 90% FiO2. She has no new complain. Physical Examination - Vital Signs Temperature: 97.3 F Blood Pressure: 106/62 Pulse: 83 Respirations: 23 Pulse Ox (%): 90 - Physical Exam General: In no apparent distress Respiratory: Other (Nonlabored breathing) Cardiovascular: Regular rate/rhythm, Normal S1 S2 Gastrointestinal: Soft and benign, Non-distended Musculoskeletal: No swelling Integumentary: No rashes Neurological: Other (No focal motor deficit) Assessment And Plan - Current Problems (Diagnosis) (1) Uncontrolled type 2 diabetes mellitus with hyperglycemia Current Visit: Yes Status: Acute (2) Acute respiratory failure with hypoxia Current Visit: Yes Status: Acute (3) Pneumonia due to COVID-19 virus Current Visit: Yes Status: Acute (4) Iron deficiency anemia Current Visit: Yes Status: Acute - Plan Continue CPAP. Wean FiO2 continue IV steroids, covid supplements, ivermectin Continue barictinib. trend inflammatory markers sliding scale insulin and accuchecks, A1c >13.9. pt is insulin naive. Patient with severe hyperglycemia. Lantus titrated up to 30 units bid. Continue to titrate Lantus insulin iron supplementation Monitor and replete electrolytes as needed. DVT ppx
[2021-01-26] MEDS: BARICITINIB 2 MG TABLET PO SCH (13:00)
[2021-01-26] MEDS: RIVAROXABAN 20 MG TABLET PO SCH (17:31)
[2021-01-26] MEDS: MELATONIN 5 MG TABLET PO PRN (19:50)
[2021-01-27 04:30] LABS: ALT/SGPT 39 U/L (12-78); AST/SGOT 63 U/L (15-37); Albumin 2.4 g/dL (3.4-5.0); Alkaline Phosphatase 265 U/L (45-117); BUN Blood Urea Nitrogen 18 mg/dL (7-18); Bicarbonate 30 mmol/L (21-32); Bilirubin Total 0.4 mg/dL (0.2-1.0); Glucose Level 175 mg/dL (74-106); Potassium 4.2 mmol/L (3.5-5.1); Protein, Total 7.3 g/dL (6.4-8.2); Sodium Level 141 mmol/L (136-145)
[2021-01-27 04:33] LABS: Absolute Lymphocytes (CBC) 0.8 K/uL (0.7-4.9); Basophils % 0.6 % (0-1.3); Lymphocytes % 6.7 % (15.3-44.8); MPV 7.9 fL (7.6-11.3); RBC Red Blood Cell Count 3.79 M/uL (3.86-4.86)
--- NOTE | 2021-01-27 07:20 | RAD REPORT ---
EXAM DESCRIPTION: RAD - Chest Single View - 01/27/2021 5:17 am CLINICAL HISTORY: Coronavirus pneumonia COMPARISON: January [address] chest TECHNIQUE: AP portable chest image was obtained 01/27/2021 5:17 am . FINDINGS: Diffuse bilateral airspace opacification is still present, left greater than right. This b ilateral COVID pneumonia pattern is not clearly different since the prior study of January 23. Heart size is prominent but not clearly different over the interval. Vasculature is mostly obscured by the dense airspace disease. No measurable pleural effusion and no pneumothorax. No acute bony abno rmality seen. No acute aortic findings suspected. IMPRESSION: Extensive bilateral, left greater than right, COVID-19 pneumonia. Findings are not significantly different since January 23.
[2021-01-27] MEDS: BARICITINIB 2 MG TABLET PO SCH ×2 (09:00→09:14)
[2021-01-27] MEDS: FERROUS SULFATE 325 MG TAB PO SCH ×2 (09:09→19:38)
[2021-01-27] MEDS: VITAMIN D 1000 UNIT TAB PO SCH (09:09)
[2021-01-27] MEDS: ASCORBIC ACID 500 MG TABLET PO SCH ×4 (09:10→19:38)
[2021-01-27] MEDS: THIAMINE HCL 100 MG TABLET PO SCH (09:10)
[2021-01-27] MEDS: FAMOTIDINE 20 MG TAB PO SCH ×2 (09:10→19:38)
[2021-01-27] MEDS: ZINC SULFATE 220 MG CAP PO SCH (09:10)
[2021-01-27] MEDS: METHYLPREDNISOLONE 125 MG INJ IV SCH ×2 (09:10→19:38)
[2021-01-27] MEDS: INSULIN GLARGINE 100 UNITS/ML SQ SCH ×2 (09:11→20:04)
[2021-01-27] MEDS: INSULIN -REGULAR HUMAN 50 UNIT/0.5 ML ML SQ SCH ×4 (09:12→20:05)
[2021-01-27 10:25] LABS: Blood Morphology Comment NOT SEEN (NOT SEEN); Platelet Estimate ADEQ; White Blood Cell Scan OK (OK)
[2021-01-27] MEDS: BENZONATATE 100 MG CAP PO PRN (11:21)
[2021-01-27] MEDS: ASPIRIN EC 81 MG TAB PO SCH (11:21)
--- NOTE | 2021-01-27 14:32 | P.PN ---
Subjective Date of Service: 01/27/21 Chief Complaint: covid pneumonia Patient now on 100% non-rebreather She has no new complain. Physical Examination - Vital Signs Temperature: 97.3 F Blood Pressure: 125/73 Pulse: 93 Respirations: 24 Pulse Ox (%): 89 - Physical Exam General: In no apparent distress, Obese Neck: JVD not distended Respiratory: Other (Nonlabored breathing) Cardiovascular: Regular rate/rhythm, Normal S1 S2 Gastrointestinal: Soft and benign, Non-distended Musculoskeletal: No swelling Integumentary: No rashes Neurological: Normal strength at 5/5 x4 extr Assessment And Plan - Current Problems (Diagnosis) (1) Uncontrolled type 2 diabetes mellitus with hyperglycemia Current Visit: Yes Status: Acute (2) Acute respiratory failure with hypoxia Current Visit: Yes Status: Acute (3) Pneumonia due to COVID-19 virus Current Visit: Yes Status: Acute (4) Iron deficiency anemia Current Visit: Yes Status: Acute - Plan Patient not tolerating 100% non-rebreather. Wean FiO2 as tolerated continue IV steroids, covid supplements. Continue barictinib. Continue to monitor inflammatory markers. sliding scale insulin and accuchecks, A1c >13.9. pt is insulin naive. Patient with severe hyperglycemia. Lantus titrated up to 30 units bid. Blood sugar readings improved. Continue current Lantus insulin dose. iron supplementation Monitor and replete electrolytes as needed. DVT ppx: Xarelto.
[2021-01-27] MEDS: RIVAROXABAN 20 MG TABLET PO SCH (17:06)
[2021-01-28] MEDS: MELATONIN 5 MG TABLET PO PRN ×2 (02:38→19:57)
[2021-01-28] MEDS: BENZONATATE 100 MG CAP PO PRN ×3 (02:38→19:57)
[2021-01-28 03:48] LABS: Absolute Lymphocytes (CBC) 0.7 K/uL (0.7-4.9); Basophils % 0.8 % (0-1.3); Hematocrit 30.9 % (36.0-45.0); Lymphocytes % 4.9 % (15.3-44.8); RBC Red Blood Cell Count 3.86 M/uL (3.86-4.86)
[2021-01-28 04:13] LABS: BUN Blood Urea Nitrogen 22 mg/dL (7-18); Bicarbonate 31 mmol/L (21-32); Ferritin 191.3 ng/mL (8-388); Glucose Level 155 mg/dL (74-106); Potassium 4.1 mmol/L (3.5-5.1); Sodium Level 141 mmol/L (136-145)
[2021-01-28] MEDS: INSULIN -REGULAR HUMAN 50 UNIT/0.5 ML ML SQ SCH ×4 (07:30→20:08)
[2021-01-28] MEDS: BARICITINIB 2 MG TABLET PO SCH ×2 (09:00→09:24)
[2021-01-28] MEDS: ZINC SULFATE 220 MG CAP PO SCH (09:21)
[2021-01-28] MEDS: ASCORBIC ACID 500 MG TABLET PO SCH ×4 (09:21→19:56)
[2021-01-28] MEDS: THIAMINE HCL 100 MG TABLET PO SCH (09:21)
[2021-01-28] MEDS: VITAMIN D 1000 UNIT TAB PO SCH (09:22)
[2021-01-28] MEDS: METHYLPREDNISOLONE 125 MG INJ IV SCH ×2 (09:22→19:57)
[2021-01-28] MEDS: FERROUS SULFATE 325 MG TAB PO SCH ×2 (09:22→19:57)
[2021-01-28] MEDS: ASPIRIN EC 81 MG TAB PO SCH (09:22)
[2021-01-28] MEDS: INSULIN GLARGINE 100 UNITS/ML SQ SCH ×2 (09:23→20:07)
[2021-01-28] MEDS: FAMOTIDINE 20 MG TAB PO SCH ×2 (09:47→19:57)
--- NOTE | 2021-01-28 12:03 | P.PN ---
Subjective Date of Service: 01/28/21 Chief Complaint: covid pneumonia Respiratory failure still using high concentrations of oxygen Review of Systems General: Weakness Respiratory: Shortness of Breath Physical Examination - Vital Signs Temperature: 97.3 F Blood Pressure: 112/72 Pulse: 74 Respirations: 26 Pulse Ox (%): 91 - Physical Exam General: Alert, Oriented x3, Cooperative - Studies Microbiology Data (last 24 hrs): 01/23/21 00:38 Blood - Blood Aerobic Blood Culture - Final No growth in 5 days. 01/23/21 00:38 Blood - Blood Anaerobic Blood Culture - Final No growth in 5 days. 01/23/21 00:38 Blood - Blood Aerobic Blood Culture - Final No growth in 5 days. 01/23/21 00:38 Blood - Blood Anaerobic Blood Culture - Final No growth in 5 days. Assessment & Plan - Problems (Diagnosis) (1) Pneumonia due to COVID-19 virus Current Visit: Yes Status: Acute Plan: Respiratory failure no check respiratory failure no change in therapy on maximum therapy
[2021-01-28] MEDS ORDERED: NA CHLORIDE 0.9% 500 ML IV ONE (13:49)
--- NOTE | 2021-01-28 13:49 | P.PN ---
Subjective Date of Service: 01/28/21 Chief Complaint: covid pneumonia Subjective: No new changes (feels slightly better this morning, still requiring high levels of Fio2, no new complaints) Review of Systems 10-point ROS is otherwise unremarkable Physical Examination - Vital Signs Temperature: 97.3 F Blood Pressure: 112/72 Pulse: 74 Respirations: 26 Pulse Ox (%): 91 - Studies Microbiology Data (last 24 hrs): 01/23/21 00:38 Blood - Blood Aerobic Blood Culture - Final No growth in 5 days. 01/23/21 00:38 Blood - Blood Anaerobic Blood Culture - Final No growth in 5 days. 01/23/21 00:38 Blood - Blood Aerobic Blood Culture - Final No growth in 5 days. 01/23/21 00:38 Blood - Blood Anaerobic Blood Culture - Final No growth in 5 days. Assessment & Plan Physician Review Additional Text: Physical Exam General: In no apparent distress HEENT: normal conjunctiva, sclera anicteric Respiratory: nonlabored respiratiosn on NRB Cardiovascular: Regular rate/rhythm, Normal S1 S2 Gastrointestinal: Soft and benign, Non-distended Musculoskeletal: No swelling Neurological: Normal strength at 5/5 x4 extr Problem List Acute hypoxemic respiratory failure secondary to COVID-19 pneumonia Uncontrolled type 2 diabetes mellitus with hyperglycemia Iron deficiency anemia patient with low UOP overnight per nursing staff, not takign in much PO due to CPAP/BIPAP mask tolerating NRB this morning, able to drink/eat more dark urine noted will give 500cc of IVF Wean FiO2 as tolerated continue IV steroids, covid supplements. Continue barictinib. Continue to monitor inflammatory markers. sliding scale insulin and accuchecks, A1c >13.9. pt is insulin naive. Patient with severe hyperglycemia. Lantus titrated up to 30 units bid. Blood sugar readings improved. Continue current Lantus insulin dose. iron supplementation Monitor and replete electrolytes as needed. DVT ppx: Xarelto. Dispo: anticipate dc home in several days Time Spent Managing Pts Care (In Minutes): 35
[2021-01-28] MEDS: RIVAROXABAN 20 MG TABLET PO SCH (17:56)
[2021-01-29 04:45] LABS: Absolute Lymphocytes (CBC) 0.5 K/uL (0.7-4.9); Basophils % 0.8 % (0-1.3); Hematocrit 30.9 % (36.0-45.0); Lymphocytes % 3.8 % (15.3-44.8); MPV 8.1 fL (7.6-11.3)
[2021-01-29 05:00] LABS: BUN Blood Urea Nitrogen 24 mg/dL (7-18); Bicarbonate 29 mmol/L (21-32); Glucose Level 199 mg/dL (74-106); Potassium 4.4 mmol/L (3.5-5.1); Sodium Level 141 mmol/L (136-145)
--- NOTE | 2021-01-29 06:16 | P.PN ---
Subjective Date of Service: 01/29/21 Chief Complaint: covid pneumonia Subjective: Improving (feeling better, still on 15L NRB, off/on BIPAP. good appetite) Review of Systems 10-point ROS is otherwise unremarkable Physical Examination - Vital Signs Temperature: 97.0 F Blood Pressure: 123/58 Pulse: 78 Respirations: 20 Pulse Ox (%): 90 Assessment & Plan Physician Review Additional Text: Physical Exam General: In no apparent distress HEENT: normal conjunctiva, sclera anicteric Respiratory: nonlabored respirations on NRB Cardiovascular: Regular rate/rhythm, Normal S1 S2 Gastrointestinal: Soft and benign, Non-distended Musculoskeletal: No swelling Problem List Acute hypoxemic respiratory failure secondary to COVID-19 pneumonia Uncontrolled type 2 diabetes mellitus with hyperglycemia Iron deficiency anemia patient with low UOP overnight 2 nights ago per nursing staff, was not taking in much PO due to CPAP/BIPAP mask drinking/eating more yesterday dark urine noted yesterday, has improved, received 500cc IVF on 01/28 continue IV steroids, covid supplements. Continue barictinib. Continue to monitor inflammatory markers. sliding scale insulin and accuchecks, A1c >13.9. pt is insulin naive. Patient with severe hyperglycemia. Lantus titrated up to 30 units bid. Blood sugar readings improved. Continue current Lantus insulin dose. iron supplementation Monitor and replete electrolytes as needed. continue carter for now to monitor I/Os, likely remove tomorrow DVT: Xarelto. Dispo: anticipate dc home in several days Time Spent Managing Pts Care (In Minutes): 40
[2021-01-29] MEDS: INSULIN -REGULAR HUMAN 50 UNIT/0.5 ML ML SQ SCH ×4 (07:30→21:27)
[2021-01-29] MEDS: INSULIN GLARGINE 100 UNITS/ML SQ SCH ×2 (09:00→21:26)
[2021-01-29] MEDS: ASPIRIN EC 81 MG TAB PO SCH ×2 (09:00→09:45)
[2021-01-29] MEDS: BARICITINIB 2 MG TABLET PO SCH (09:00)
[2021-01-29] MEDS: THIAMINE HCL 100 MG TABLET PO SCH (09:44)
[2021-01-29] MEDS: VITAMIN D 1000 UNIT TAB PO SCH (09:44)
[2021-01-29] MEDS: METHYLPREDNISOLONE 125 MG INJ IV SCH ×2 (09:44→21:28)
[2021-01-29] MEDS: FERROUS SULFATE 325 MG TAB PO SCH ×2 (09:45→21:26)
[2021-01-29] MEDS: FENOFIBRATE 160 MG TAB PO SCH (09:45)
[2021-01-29] MEDS: ZINC SULFATE 220 MG CAP PO SCH (09:45)
[2021-01-29] MEDS: ASCORBIC ACID 500 MG TABLET PO SCH ×4 (09:45→17:41)
[2021-01-29] MEDS: FAMOTIDINE 20 MG TAB PO SCH ×2 (09:45→21:27)
[2021-01-29] MEDS: RIVAROXABAN 20 MG TABLET PO SCH ×2 (17:40→17:42)
[2021-01-29] MEDS: MELATONIN 5 MG TABLET PO PRN (21:28)
[2021-01-30 03:42] LABS: Absolute Lymphocytes (CBC) 0.5 K/uL (0.7-4.9); Basophils % 0.3 % (0-1.3); Hematocrit 29.3 % (36.0-45.0); Lymphocytes % 4.9 % (15.3-44.8); MPV 8.3 fL (7.6-11.3); RBC Red Blood Cell Count 3.66 M/uL (3.86-4.86)
[2021-01-30 04:10] LABS: BUN Blood Urea Nitrogen 26 mg/dL (7-18); Bicarbonate 28 mmol/L (21-32); Glucose Level 173 mg/dL (74-106); Potassium 4.6 mmol/L (3.5-5.1); Sodium Level 142 mmol/L (136-145)
--- NOTE | 2021-01-30 06:15 | P.PN ---
Subjective Date of Service: 01/30/21 Chief Complaint: covid pneumonia Subjective: Improving (Feeling better today, tolerating nonrebreather, does not like CPAP. Slight improvement, CRP improving. Able to eat more. Agreeable to LTAC) Review of Systems 10-point ROS is otherwise unremarkable Physical Examination - Vital Signs Temperature: 96.9 F Blood Pressure: 115/63 Pulse: 75 Respirations: 18 Pulse Ox (%): 98 Assessment & Plan Physician Review Additional Text: Physical Exam General: In no apparent distress HEENT: normal conjunctiva, sclera anicteric Respiratory: Mild labored respirations on NRB Cardiovascular: Regular rate/rhythm, no edema Gastrointestinal: Soft and benign, Non-distended Musculoskeletal: No swelling Problem List Acute hypoxemic respiratory failure secondary to COVID-19 pneumonia Uncontrolled type 2 diabetes mellitus with hyperglycemia Iron deficiency anemia P.o. intake has improved, now patient is tolerating nonrebreather for longer periods Urine output significantly improved, will DC Kedar continue steroids, covid supplements. Continue barictinib. sliding scale insulin and accuchecks, A1c >13.9. pt insulin naive. Patient with severe hyperglycemia. Lantus titrated up to 30 units bid. Blood sugar readings improved. Continue current Lantus insulin dose. iron supplementation Monitor and replete electrolytes as needed. DVT: Xarelto. Dispo: Patient hospitalization appears that it will be prolonged. She is agreeable to LTAC Time Spent Managing Pts Care (In Minutes): 40
[2021-01-30] MEDS: INSULIN -REGULAR HUMAN 50 UNIT/0.5 ML ML SQ SCH ×4 (07:30→20:53)
[2021-01-30] MEDS: THIAMINE HCL 100 MG TABLET PO SCH (09:54)
[2021-01-30] MEDS: VITAMIN D 1000 UNIT TAB PO SCH (09:54)
[2021-01-30] MEDS: FERROUS SULFATE 325 MG TAB PO SCH ×2 (09:55→20:52)
[2021-01-30] MEDS: FENOFIBRATE 160 MG TAB PO SCH (09:55)
[2021-01-30] MEDS: BARICITINIB 2 MG TABLET PO SCH (09:55)
[2021-01-30] MEDS: FAMOTIDINE 20 MG TAB PO SCH ×2 (09:55→20:52)
[2021-01-30] MEDS: ASCORBIC ACID 500 MG TABLET PO SCH ×4 (09:55→20:52)
[2021-01-30] MEDS: ZINC SULFATE 220 MG CAP PO SCH (09:55)
[2021-01-30] MEDS: METHYLPREDNISOLONE 125 MG INJ IV SCH ×3 (09:56→21:00)
[2021-01-30] MEDS: INSULIN GLARGINE 100 UNITS/ML SQ SCH ×2 (09:59→20:54)
[2021-01-30] MEDS: MELATONIN 5 MG TABLET PO PRN (20:52)
[2021-01-31 06:17] LABS: Absolute Lymphocytes (CBC) 2.2 K/uL (0.7-4.9); Hematocrit 31.2 % (36.0-45.0); Lymphocytes % 13.7 % (15.3-44.8); MPV 8.2 fL (7.6-11.3); RBC Red Blood Cell Count 3.89 M/uL (3.86-4.86)
[2021-01-31 06:39] LABS: BUN Blood Urea Nitrogen 30 mg/dL (7-18); Bicarbonate 29 mmol/L (21-32); Glucose Level 67 mg/dL (74-106); Potassium 4.3 mmol/L (3.5-5.1); Sodium Level 145 mmol/L (136-145)
--- NOTE | 2021-01-31 07:06 | P.PN ---
Subjective Date of Service: 01/31/21 Chief Complaint: covid pneumonia Subjective: Improving (Feeling better, tolerating nonrebreather, inflammatory markers improved. Thacker removed yesterday, voiding without issue yesterday) Review of Systems 10-point ROS is otherwise unremarkable Physical Examination - Vital Signs Temperature: 97 F Blood Pressure: 106/60 Pulse: 85 Respirations: 18 Pulse Ox (%): 97 Assessment & Plan Physician Review Additional Text: Physical Exam General: In no apparent distress HEENT: normal conjunctiva, sclera anicteric Respiratory: Mild labored respirations on NRB Cardiovascular: Regular rate/rhythm, no edema Gastrointestinal: Soft and benign, Non-distended Musculoskeletal: No swelling Problem List Acute hypoxemic respiratory failure secondary to COVID-19 pneumonia Uncontrolled type 2 diabetes mellitus with hyperglycemia Iron deficiency anemia P.o. intake has improved, now patient is tolerating nonrebreather for longer periods Urine output significantly improved, raul motta'neena on 01/30 continue steroids, covid supplements. Continue barictinib. sliding scale insulin and accuchecks, A1c >13.9. pt insulin naive. Patient had severe hyperglycemia, now borderline low, will decrease lantus iron supplementation Monitor and replete electrolytes as needed. DVT: Xarelto. Dispo: Patient hospitalization appears that it will be prolonged. She is agreeable to LTAC Time Spent Managing Pts Care (In Minutes): 35
[2021-01-31] MEDS: INSULIN -REGULAR HUMAN 50 UNIT/0.5 ML ML SQ SCH ×4 (07:30→19:57)
[2021-01-31 08:51] LABS: Anisocytosis 1+; Blood Morphology Comment NOTED (NOT SEEN); Platelet Estimate ADEQ; Polychromasia SLIGHT; Target Cells FEW; White Blood Cell Scan OK (OK)
[2021-01-31] MEDS: FENOFIBRATE 160 MG TAB PO SCH (08:59)
[2021-01-31] MEDS: BARICITINIB 2 MG TABLET PO SCH (08:59)
[2021-01-31] MEDS: ASPIRIN EC 81 MG TAB PO SCH (08:59)
[2021-01-31] MEDS: THIAMINE HCL 100 MG TABLET PO SCH (08:59)
[2021-01-31] MEDS: ZINC SULFATE 220 MG CAP PO SCH (08:59)
[2021-01-31] MEDS: VITAMIN D 1000 UNIT TAB PO SCH (08:59)
[2021-01-31] MEDS: ASCORBIC ACID 500 MG TABLET PO SCH ×4 (09:00→20:08)
[2021-01-31] MEDS: METHYLPREDNISOLONE 125 MG INJ IV SCH ×2 (09:00→20:08)
[2021-01-31] MEDS ORDERED: INSULIN GLARGINE 100 UNITS/ML SQ SCH (09:00)
[2021-01-31] MEDS: FERROUS SULFATE 325 MG TAB PO SCH ×2 (09:00→20:08)
[2021-01-31] MEDS: FAMOTIDINE 20 MG TAB PO SCH ×2 (09:00→20:08)
--- NOTE | 2021-01-31 13:02 | P.PN ---
Subjective Date of Service: 01/31/21 Chief Complaint: covid pneumonia Respiratory failure still requiring high concentrations of oxygen Review of Systems General: Weakness Respiratory: Shortness of Breath Physical Examination - Vital Signs Temperature: 97 F Blood Pressure: 117/59 Pulse: 102 Respirations: 26 Pulse Ox (%): 92 - Physical Exam General: Alert, Oriented x3, Cooperative Assessment & Plan - Problems (Diagnosis) (1) Pneumonia due to COVID-19 virus Current Visit: Yes Status: Acute Plan: Respiratory failure on 85% FiO2 continue with present treatment chest x-ray ordered
[2021-01-31] MEDS: RIVAROXABAN 20 MG TABLET PO SCH (16:44)
--- NOTE | 2021-01-31 19:12 | RAD REPORT ---
EXAM DESCRIPTION: RAD - Chest Single View - 01/31/2021 7:03 pm CLINICAL HISTORY: Device placement PICC line placement . IMPRESSION: PICC line with its tip in the superior vena cava
[2021-01-31] MEDS: INSULIN GLARGINE 100 UNITS/ML SQ SCH (20:09)
--- NOTE | 2021-02-01 06:06 | P.PN ---
Subjective Date of Service: 02/01/21 Chief Complaint: covid pneumonia Subjective: Improving (Feeling better) Review of Systems 10-point ROS is otherwise unremarkable Physical Examination - Vital Signs Temperature: 97.6 F Blood Pressure: 110/57 Pulse: 84 Respirations: 20 Pulse Ox (%): 93 Assessment & Plan Physician Review Additional Text: Physical Exam General: In no apparent distress HEENT: normal conjunctiva, sclera anicteric Respiratory: non labored respirations on NRB Cardiovascular: Regular rate/rhythm, no edema Gastrointestinal: Soft and benign, Non-distended Musculoskeletal: No swelling Problem List Acute hypoxemic respiratory failure secondary to COVID-19 pneumonia Uncontrolled type 2 diabetes mellitus with hyperglycemia Iron deficiency anemia P.o. intake has improved, now patient is tolerating nonrebreather for longer periods Urine output significantly improved, raul motta'neena on 01/30 continue steroids, covid supplements. Continue barictinib. sliding scale insulin and accuchecks, A1c >13.9. pt insulin naive. Patient had severe hyperglycemia, now borderline low, will decrease lantus iron supplementation CRP increased today, review of systems negative. repeat tomorrow DVT: Xarelto. Dispo: Patient hospitalization appears that it will be prolonged. She is agreeable to LTAC Time Spent Managing Pts Care (In Minutes): 35
[2021-02-01 06:19] LABS: Absolute Lymphocytes (CBC) 0.7 K/uL (0.7-4.9); Basophils % 0.4 % (0-1.3); Hematocrit 30.4 % (36.0-45.0); Lymphocytes % 6.3 % (15.3-44.8); MPV 8.1 fL (7.6-11.3); RBC Red Blood Cell Count 3.83 M/uL (3.86-4.86)
[2021-02-01 06:31] LABS: BUN Blood Urea Nitrogen 28 mg/dL (7-18); Bicarbonate 27 mmol/L (21-32); Ferritin 219.4 ng/mL (8-388); Glucose Level 174 mg/dL (74-106); Potassium 4.9 mmol/L (3.5-5.1); Sodium Level 141 mmol/L (136-145)
[2021-02-01] MEDS: INSULIN -REGULAR HUMAN 50 UNIT/0.5 ML ML SQ SCH ×4 (07:30→21:22)
--- NOTE | 2021-02-01 07:42 | RAD REPORT ---
EXAM DESCRIPTION: [facility] Single View02/01/2021 7:16 am CLINICAL HISTORY: Restored failure COMPARISON: January 31, 2021 FINDINGS: Mild improvement in bilateral pulmonary opacities. Small lucencies within upper hemithoraces bilaterally. The heart is normal size PICC line in good position IMPRESSION: Mild improvement bilateral pulmonary opacities probably pneumonia Small lucencies within upper hemithoraces bilaterally may represent normal aerated lung or small pneu mothoraces. This can be evaluated on subsequent examination with the patient in expiration.
[2021-02-01] MEDS: BARICITINIB 2 MG TABLET PO SCH (09:00)
[2021-02-01] MEDS: METHYLPREDNISOLONE 125 MG INJ IV SCH ×2 (09:00→21:04)
[2021-02-01] MEDS: ASPIRIN EC 81 MG TAB PO SCH (09:29)
[2021-02-01] MEDS: VITAMIN D 1000 UNIT TAB PO SCH (09:29)
[2021-02-01] MEDS: FAMOTIDINE 20 MG TAB PO SCH ×2 (09:30→21:02)
[2021-02-01] MEDS: ZINC SULFATE 220 MG CAP PO SCH (09:30)
[2021-02-01] MEDS: FERROUS SULFATE 325 MG TAB PO SCH ×2 (09:30→21:02)
[2021-02-01] MEDS: FENOFIBRATE 160 MG TAB PO SCH (09:30)
[2021-02-01] MEDS: THIAMINE HCL 100 MG TABLET PO SCH (09:30)
[2021-02-01] MEDS: ASCORBIC ACID 500 MG TABLET PO SCH ×4 (09:30→21:04)
[2021-02-01] MEDS: INSULIN GLARGINE 100 UNITS/ML SQ SCH ×2 (09:31→21:02)
--- NOTE | 2021-02-01 12:37 | P.PN ---
Subjective Date of Service: 02/01/21 Chief Complaint: covid pneumonia Patient is subjectively feeling better although still requiring high concentrations of oxygen Review of Systems Respiratory: Shortness of Breath Physical Examination - Vital Signs Temperature: 97.6 F Blood Pressure: 112/69 Pulse: 86 Respirations: 26 Pulse Ox (%): 91 - Physical Exam General: Alert, Oriented x3, Oriented x1 Assessment & Plan - Problems (Diagnosis) (1) Pneumonia due to COVID-19 virus Current Visit: Yes Status: Acute Plan: Patient is 50 years of age admitted with respiratory failure from coronavirus she is feeling better continue to titrate her O2 down on max therapy
[2021-02-01] MEDS: RIVAROXABAN 20 MG TABLET PO SCH (21:04)
[2021-02-02 05:57] LABS: Absolute Lymphocytes (CBC) 0.8 K/uL (0.7-4.9); Basophils % 0.6 % (0-1.3); Hematocrit 29.7 % (36.0-45.0); Lymphocytes % 5.7 % (15.3-44.8); MPV 8.7 fL (7.6-11.3); RBC Red Blood Cell Count 3.72 M/uL (3.86-4.86)
[2021-02-02 06:20] LABS: BUN Blood Urea Nitrogen 30 mg/dL (7-18); Bicarbonate 28 mmol/L (21-32); Ferritin 249.1 ng/mL (8-388); Glucose Level 260 mg/dL (74-106); Potassium 4.7 mmol/L (3.5-5.1); Sodium Level 139 mmol/L (136-145)
--- NOTE | 2021-02-02 06:36 | P.PN ---
Subjective Date of Service: 02/02/21 Chief Complaint: covid pneumonia Subjective: Improving (off/on CPAP/NRB. feeling better, no new complaints) Review of Systems 10-point ROS is otherwise unremarkable Physical Examination - Vital Signs Temperature: 96.9 F Blood Pressure: 102/60 Pulse: 81 Respirations: 17 Pulse Ox (%): 94 Assessment & Plan Physician Review Additional Text: Physical Exam General: In no apparent distress HEENT: normal conjunctiva, sclera anicteric Respiratory: non-labored respirations on CPAP Cardiovascular: Regular rate/rhythm, no edema Gastrointestinal: Soft and benign, Non-distended Musculoskeletal: No swelling Problem List Acute hypoxemic respiratory failure secondary to COVID-19 pneumonia Uncontrolled type 2 diabetes mellitus with hyperglycemia Iron deficiency anemia P.o. intake has improved, now patient is tolerating nonrebreather for longer periods Urine output significantly improved, raul motta'neena on 01/30 continue steroids, covid supplements. Continue barictinib. sliding scale insulin and accuchecks, A1c >13.9. pt insulin naive. Patient had severe hyperglycemia, now borderline low, will decrease lantus iron supplementation CRP improved today, worsened on 02/01. monitoring for signs of superinfection DVT: Elizabeth. Dispo: Patient hospitalization appears that it will be prolonged. She is agreeable to LTAC Time Spent Managing Pts Care (In Minutes): 35
[2021-02-02] MEDS: INSULIN -REGULAR HUMAN 50 UNIT/0.5 ML ML SQ SCH ×4 (07:30→20:39)
--- NOTE | 2021-02-02 07:54 | RAD REPORT ---
EXAM DESCRIPTION: RAD - Chest Single View - 02/02/2021 6:46 am CLINICAL HISTORY: f/u possible pneumothoracices COMPARISON: Chest Single View dated 02/01/2021; Chest Single View dated 01/31/2021; Chest Single View da alex 01/27/2021; Chest Single View dated 01/23/2021; Chest For Pe Angio dated 01/23/2021 FINDINGS: Lines: Right subclavian approach PICC with tip overlying the superior cavoatrial junction. Lungs: Severe widespread bilateral airspace disease that is similar to 02/01/2021. Pleural: No significant pleural effusions or pneumothorax. Cardiac: The heart size is within normal limits. Bones: No acute fractures. Other: IMPRESSION: Unchanged severe bilateral airspace disease concerning for multifocal pneumonia. No pneu mothorax identified.
[2021-02-02] MEDS: FERROUS SULFATE 325 MG TAB PO SCH ×2 (09:00→20:38)
[2021-02-02] MEDS: METHYLPREDNISOLONE 125 MG INJ IV SCH ×2 (09:00→20:38)
[2021-02-02] MEDS: ASCORBIC ACID 500 MG TABLET PO SCH ×4 (09:00→20:39)
[2021-02-02] MEDS: INSULIN GLARGINE 100 UNITS/ML SQ SCH ×2 (09:00→20:38)
[2021-02-02] MEDS: ZINC SULFATE 220 MG CAP PO SCH (09:00)
[2021-02-02] MEDS: THIAMINE HCL 100 MG TABLET PO SCH (09:00)
[2021-02-02] MEDS: FENOFIBRATE 160 MG TAB PO SCH (09:00)
[2021-02-02] MEDS: BARICITINIB 2 MG TABLET PO SCH (09:00)
[2021-02-02] MEDS: FAMOTIDINE 20 MG TAB PO SCH ×2 (09:00→20:39)
[2021-02-02] MEDS: VITAMIN D 1000 UNIT TAB PO SCH (09:00)
[2021-02-02] MEDS: ASPIRIN EC 81 MG TAB PO SCH (09:00)
[2021-02-02 12:03] LABS: Anisocytosis 2+; Blood Morphology Comment NOTED (NOT SEEN); Platelet Estimate ADEQ
[2021-02-02] MEDS: RIVAROXABAN 20 MG TABLET PO SCH (16:18)
[2021-02-03 05:05] LABS: Absolute Lymphocytes (CBC) 0.7 K/uL (0.7-4.9); Basophils % 0.4 % (0-1.3); Hematocrit 28.2 % (36.0-45.0); Lymphocytes % 6.6 % (15.3-44.8); MPV 8.7 fL (7.6-11.3)
[2021-02-03 05:34] LABS: BUN Blood Urea Nitrogen 33 mg/dL (7-18); Bicarbonate 29 mmol/L (21-32); Glucose Level 269 mg/dL (74-106); Potassium 4.8 mmol/L (3.5-5.1); Sodium Level 141 mmol/L (136-145)
--- NOTE | 2021-02-03 06:29 | P.PN ---
Subjective Date of Service: 02/03/21 Chief Complaint: covid pneumonia Subjective: No new changes (Difficulty coming off CPAP in the mornings, yesterday did not eat much breakfast/lunch, able to eat dinner. Reports she is feeling better today. Inflammatory markers improving) Review of Systems 10-point ROS is otherwise unremarkable Physical Examination - Vital Signs Temperature: 96.5 F Blood Pressure: 130/63 Pulse: 96 Respirations: 18 Pulse Ox (%): 96 Assessment & Plan Physician Review Additional Text: Physical Exam General: In no apparent distress HEENT: normal conjunctiva, sclera anicteric Respiratory: non-labored respirations on CPAP Cardiovascular: Regular rate/rhythm, no edema Gastrointestinal: Soft and benign, Non-distended Musculoskeletal: No swelling Problem List Acute hypoxemic respiratory failure secondary to COVID-19 pneumonia Uncontrolled type 2 diabetes mellitus with hyperglycemia Iron deficiency anemia Was only able to eat dinner yesterday, encourage Ensure drinks today Urine output significantly improved, raul motta'neena on 01/30 continue steroids (80mg BID since 01/23) Continue vitamin supplementation, continue baricitinib (started 01/26) sliding scale insulin and accuchecks, A1c >13.9. pt insulin naive. Patient had severe hyperglycemia, now borderline low, likely from decreased p.o. intake, adjust Lantus If no improvement in p.o. intake, consider Dobbhoff placement the next 1-2 days. Currently out of stock of Dobbhoff's locally/state wide iron supplementation CRP improved today, worsened on 02/01. monitoring for signs of superinfection DVT: Elizabeth. Dispo: Patient hospitalization appears that it will be prolonged. She is agreeable to LTAC - in process Time Spent Managing Pts Care (In Minutes): 35
[2021-02-03] MEDS: INSULIN -REGULAR HUMAN 50 UNIT/0.5 ML ML SQ SCH ×5 (07:30→21:19)
[2021-02-03] MEDS: FERROUS SULFATE 325 MG TAB PO SCH ×2 (09:00→21:18)
[2021-02-03] MEDS: INSULIN GLARGINE 100 UNITS/ML SQ SCH ×2 (09:05→21:19)
[2021-02-03] MEDS: ASPIRIN EC 81 MG TAB PO SCH (09:05)
[2021-02-03] MEDS: BARICITINIB 2 MG TABLET PO SCH (09:05)
[2021-02-03] MEDS: VITAMIN D 1000 UNIT TAB PO SCH (09:06)
[2021-02-03] MEDS: ZINC SULFATE 220 MG CAP PO SCH (09:06)
[2021-02-03] MEDS: METHYLPREDNISOLONE 125 MG INJ IV SCH ×2 (09:06→21:18)
[2021-02-03] MEDS: FAMOTIDINE 20 MG TAB PO SCH ×2 (09:06→21:18)
[2021-02-03] MEDS: FENOFIBRATE 160 MG TAB PO SCH (09:06)
[2021-02-03] MEDS: ASCORBIC ACID 500 MG TABLET PO SCH ×4 (09:06→21:18)
[2021-02-03] MEDS: THIAMINE HCL 100 MG TABLET PO SCH (09:06)
[2021-02-03] MEDS: RIVAROXABAN 20 MG TABLET PO SCH (16:41)
[2021-02-03] MEDS: BENZONATATE 100 MG CAP PO PRN (21:18)
[2021-02-04 05:15] LABS: Absolute Lymphocytes (CBC) 0.7 K/uL (0.7-4.9); Basophils % 0.3 % (0-1.3); Hematocrit 29.7 % (36.0-45.0); Lymphocytes % 5.4 % (15.3-44.8); MPV 9.1 fL (7.6-11.3); RBC Red Blood Cell Count 3.66 M/uL (3.86-4.86)
[2021-02-04 05:44] LABS: BUN Blood Urea Nitrogen 36 mg/dL (7-18); Bicarbonate 29 mmol/L (21-32); Ferritin 190.8 ng/mL (8-388); Glucose Level 272 mg/dL (74-106); Potassium 4.6 mmol/L (3.5-5.1); Sodium Level 143 mmol/L (136-145)
[2021-02-04] MEDS: FENOFIBRATE 160 MG TAB PO SCH (07:48)
[2021-02-04] MEDS: ZINC SULFATE 220 MG CAP PO SCH (07:48)
[2021-02-04] MEDS: ASPIRIN EC 81 MG TAB PO SCH (07:48)
[2021-02-04] MEDS: VITAMIN D 1000 UNIT TAB PO SCH (07:48)
[2021-02-04] MEDS: THIAMINE HCL 100 MG TABLET PO SCH (07:49)
[2021-02-04] MEDS: FAMOTIDINE 20 MG TAB PO SCH ×2 (07:49→21:54)
[2021-02-04] MEDS: FERROUS SULFATE 325 MG TAB PO SCH ×2 (07:49→21:53)
[2021-02-04] MEDS: ASCORBIC ACID 500 MG TABLET PO SCH ×4 (07:49→21:54)
[2021-02-04] MEDS: METHYLPREDNISOLONE 125 MG INJ IV SCH ×2 (07:49→21:54)
[2021-02-04] MEDS: BARICITINIB 2 MG TABLET PO SCH (07:50)
[2021-02-04] MEDS: INSULIN GLARGINE 100 UNITS/ML SQ SCH ×2 (08:55→21:53)
[2021-02-04] MEDS: INSULIN -REGULAR HUMAN 50 UNIT/0.5 ML ML SQ SCH ×4 (08:56→21:54)
[2021-02-04] MEDS: RIVAROXABAN 20 MG TABLET PO SCH (16:16)
--- NOTE | 2021-02-04 16:38 | P.PN ---
Subjective Date of Service: 02/04/21 Chief Complaint: covid pneumonia Patient now on CPAP. She has no new complain. Physical Examination - Vital Signs Temperature: 97.2 F Blood Pressure: 121/63 Pulse: 81 Respirations: 27 Pulse Ox (%): 95 - Physical Exam General: Alert, In no apparent distress HEENT: Other (CPAP) Neck: JVD not distended Respiratory: Other (Nonlabored breathing) Cardiovascular: Regular rate/rhythm, Normal S1 S2 Gastrointestinal: Soft and benign, Non-distended Musculoskeletal: No swelling Integumentary: No rashes Assessment And Plan - Current Problems (Diagnosis) (1) Uncontrolled type 2 diabetes mellitus with hyperglycemia Current Visit: Yes Status: Acute (2) Acute respiratory failure with hypoxia Current Visit: Yes Status: Acute (3) Pneumonia due to COVID-19 virus Current Visit: Yes Status: Acute (4) Iron deficiency anemia Current Visit: Yes Status: Acute Physician Review Additional Text: Problem List Acute hypoxemic respiratory failure secondary to COVID-19 pneumonia Uncontrolled type 2 diabetes mellitus with hyperglycemia Iron deficiency anemia continue steroids (80mg BID since 01/23) Continue vitamin supplementation, continue baricitinib (started 01/26) sliding scale insulin and accuchecks, A1c >13.9. pt insulin naive. Titrate Lantus insulin for hyperglycemia. Consider Dobhoff for persistent poor oral intake. DVT: Xarelto. Dispo: flow worker assisting with arrangement for LTAC placement.
[2021-02-05 06:04] LABS: Absolute Lymphocytes (CBC) 0.6 K/uL (0.7-4.9); Hematocrit 28.5 % (36.0-45.0); Lymphocytes % 4.5 % (15.3-44.8); RBC Red Blood Cell Count 3.55 M/uL (3.86-4.86)
[2021-02-05 06:20] LABS: BUN Blood Urea Nitrogen 37 mg/dL (7-18); Bicarbonate 31 mmol/L (21-32); Glucose Level 266 mg/dL (74-106); Potassium 4.6 mmol/L (3.5-5.1); Sodium Level 143 mmol/L (136-145)
[2021-02-05] MEDS: FERROUS SULFATE 325 MG TAB PO SCH ×2 (09:12→20:11)
[2021-02-05] MEDS: FENOFIBRATE 160 MG TAB PO SCH (09:12)
[2021-02-05] MEDS: INSULIN -REGULAR HUMAN 50 UNIT/0.5 ML ML SQ SCH ×4 (09:12→21:00)
[2021-02-05] MEDS: THIAMINE HCL 100 MG TABLET PO SCH (09:12)
[2021-02-05] MEDS: VITAMIN D 1000 UNIT TAB PO SCH (09:12)
[2021-02-05] MEDS: FAMOTIDINE 20 MG TAB PO SCH ×2 (09:12→20:11)
[2021-02-05] MEDS: ASCORBIC ACID 500 MG TABLET PO SCH ×4 (09:13→20:11)
[2021-02-05] MEDS: METHYLPREDNISOLONE 125 MG INJ IV SCH (09:13)
[2021-02-05] MEDS: ASPIRIN EC 81 MG TAB PO SCH (09:13)
[2021-02-05] MEDS: ZINC SULFATE 220 MG CAP PO SCH (09:13)
[2021-02-05] MEDS: INSULIN GLARGINE 100 UNITS/ML SQ SCH ×2 (09:13→21:00)
[2021-02-05] MEDS: BARICITINIB 2 MG TABLET PO SCH (09:14)
[2021-02-05] MEDS: BENZONATATE 100 MG CAP PO PRN (12:51)
--- NOTE | 2021-02-05 16:24 | P.PN ---
Subjective Date of Service: 02/05/21 Chief Complaint: covid pneumonia Improving/ O2 requirements declining Review of Systems General: Weakness Respiratory: Shortness of Breath Physical Examination - Vital Signs Temperature: 97.7 F Blood Pressure: 111/55 Pulse: 104 Respirations: 27 Pulse Ox (%): 92 - Physical Exam General: Alert, Oriented x3, Cooperative Assessment & Plan - Problems (Diagnosis) (1) Pneumonia due to COVID-19 virus Current Visit: Yes Status: Acute Plan: Doign well O2 requiremetns declining/ Reduce dose of solumedrol
--- NOTE | 2021-02-05 16:28 | P.PN ---
Subjective Date of Service: 02/05/21 Chief Complaint: covid pneumonia Patient maintained on CPAP. She has no new complain. Weaning FiO2 slowly. Physical Examination - Vital Signs Temperature: 97.7 F Blood Pressure: 111/55 Pulse: 104 Respirations: 27 Pulse Ox (%): 92 - Physical Exam General: Alert, In no apparent distress HEENT: Other (CPAP) Respiratory: Other (Nonlabored breathing) Cardiovascular: Regular rate/rhythm, Normal S1 S2 Gastrointestinal: Soft and benign, Non-distended Musculoskeletal: No swelling Integumentary: No rashes Neurological: Other (No focal deficit) Assessment And Plan - Current Problems (Diagnosis) (1) Uncontrolled type 2 diabetes mellitus with hyperglycemia Current Visit: Yes Status: Acute (2) Acute respiratory failure with hypoxia Current Visit: Yes Status: Acute (3) Pneumonia due to COVID-19 virus Current Visit: Yes Status: Acute (4) Iron deficiency anemia Current Visit: Yes Status: Acute Physician Review Additional Text: Problem List Acute hypoxemic respiratory failure secondary to COVID-19 pneumonia Uncontrolled type 2 diabetes mellitus with hyperglycemia Iron deficiency anemia continue steroids (80mg BID since 01/23) Continue vitamin supplementation, continue baricitinib (started 01/26) sliding scale insulin and accuchecks, A1c >13.9. Patient is insulin naive. Titrate Lantus insulin for hyperglycemia. Patient able to eat with 100% non-rebreather in between BIPAP. DVT: Xarelto. Dispo: machine shop worker assisting with arrangement for LTAC placement.
[2021-02-05] MEDS: RIVAROXABAN 20 MG TABLET PO SCH (16:45)
[2021-02-05] MEDS: GLUCERNA SHAKE 237 ML CAN PO SCH (21:00)
[2021-02-05] MEDS: METHYLPREDNISOLONE 40 MG INJ IV SCH (21:00)
[2021-02-06] MEDS: GLUCERNA SHAKE 237 ML CAN PO SCH ×2 (09:00→21:00)
[2021-02-06] MEDS: FERROUS SULFATE 325 MG TAB PO SCH ×2 (09:09→21:32)
[2021-02-06] MEDS: THIAMINE HCL 100 MG TABLET PO SCH (09:09)
[2021-02-06] MEDS: ZINC SULFATE 220 MG CAP PO SCH (09:09)
[2021-02-06] MEDS: ASCORBIC ACID 500 MG TABLET PO SCH ×4 (09:09→21:30)
[2021-02-06] MEDS: FENOFIBRATE 160 MG TAB PO SCH (09:09)
[2021-02-06] MEDS: VITAMIN D 1000 UNIT TAB PO SCH (09:09)
[2021-02-06] MEDS: BENZONATATE 100 MG CAP PO PRN (09:09)
[2021-02-06] MEDS: ASPIRIN EC 81 MG TAB PO SCH (09:09)
[2021-02-06] MEDS: FAMOTIDINE 20 MG TAB PO SCH ×2 (09:09→21:30)
[2021-02-06] MEDS: METHYLPREDNISOLONE 40 MG INJ IV SCH ×2 (09:10→21:31)
[2021-02-06] MEDS: INSULIN -REGULAR HUMAN 50 UNIT/0.5 ML ML SQ SCH ×4 (09:10→21:00)
[2021-02-06] MEDS: INSULIN GLARGINE 100 UNITS/ML SQ SCH ×2 (09:10→21:00)
--- NOTE | 2021-02-06 16:20 | P.PN ---
Subjective Date of Service: 02/06/21 Chief Complaint: covid pneumonia Patient maintained on CPAP. She has no new complain. No changes in her oxygen requirement. Physical Examination - Vital Signs Temperature: 97 F Blood Pressure: 105/61 Pulse: 101 Respirations: 20 Pulse Ox (%): 96 - Physical Exam General: In no apparent distress Neck: JVD not distended Respiratory: Other (Nonlabored breathing) Cardiovascular: Regular rate/rhythm, Normal S1 S2 Gastrointestinal: Soft and benign, Non-distended Musculoskeletal: No swelling Integumentary: No rashes, No erythema Neurological: Normal strength at 5/5 x4 extr Assessment And Plan - Current Problems (Diagnosis) (1) Uncontrolled type 2 diabetes mellitus with hyperglycemia Current Visit: Yes Status: Acute (2) Acute respiratory failure with hypoxia Current Visit: Yes Status: Acute (3) Pneumonia due to COVID-19 virus Current Visit: Yes Status: Acute (4) Iron deficiency anemia Current Visit: Yes Status: Acute Physician Review Additional Text: Problem List Acute hypoxemic respiratory failure secondary to COVID-19 pneumonia Uncontrolled type 2 diabetes mellitus with hyperglycemia Iron deficiency anemia continue IV Solu-Medrol 40mg BID. Continue vitamin supplementation, continue baricitinib (started 01/26) sliding scale insulin and accuchecks, A1c >13.9. Titrate Lantus insulin for hyperglycemia. DVT: Xarelto. Dispo: sheetmetal trades worker assisting with arrangement for LTAC placement.
[2021-02-06] MEDS: RIVAROXABAN 20 MG TABLET PO SCH (18:01)
[2021-02-07 05:27] LABS: Absolute Lymphocytes (CBC) 0.6 K/uL (0.7-4.9); Basophils % 0.3 % (0-1.3); Hematocrit 27.4 % (36.0-45.0); Lymphocytes % 5.1 % (15.3-44.8); RBC Red Blood Cell Count 3.39 M/uL (3.86-4.86)
[2021-02-07 05:46] LABS: ALT/SGPT 109 U/L (12-78); AST/SGOT 46 U/L (15-37); Albumin 2.5 g/dL (3.4-5.0); Alkaline Phosphatase 150 U/L (45-117); BUN Blood Urea Nitrogen 27 mg/dL (7-18); Bicarbonate 29 mmol/L (21-32); Bilirubin Total 0.4 mg/dL (0.2-1.0); Glucose Level 149 mg/dL (74-106); Potassium 4.2 mmol/L (3.5-5.1); Protein, Total 5.7 g/dL (6.4-8.2); Sodium Level 139 mmol/L (136-145)
[2021-02-07] MEDS: INSULIN -REGULAR HUMAN 50 UNIT/0.5 ML ML SQ SCH ×4 (07:30→20:29)
[2021-02-07 08:48] LABS: Anisocytosis 1+; Blood Morphology Comment NOTED (NOT SEEN); Platelet Estimate DECR; White Blood Cell Scan OK (OK)
[2021-02-07] MEDS: FENOFIBRATE 160 MG TAB PO SCH (08:50)
[2021-02-07] MEDS: ASCORBIC ACID 500 MG TABLET PO SCH ×4 (08:50→20:14)
[2021-02-07] MEDS: FERROUS SULFATE 325 MG TAB PO SCH ×2 (08:50→20:14)
[2021-02-07] MEDS: THIAMINE HCL 100 MG TABLET PO SCH (08:50)
[2021-02-07] MEDS: VITAMIN D 1000 UNIT TAB PO SCH (08:50)
[2021-02-07] MEDS: ASPIRIN EC 81 MG TAB PO SCH (08:50)
[2021-02-07] MEDS: FAMOTIDINE 20 MG TAB PO SCH ×2 (08:50→20:14)
[2021-02-07] MEDS: ZINC SULFATE 220 MG CAP PO SCH (08:50)
[2021-02-07] MEDS: METHYLPREDNISOLONE 40 MG INJ IV SCH ×2 (08:51→20:15)
[2021-02-07] MEDS: INSULIN GLARGINE 100 UNITS/ML SQ SCH ×2 (08:51→20:37)
[2021-02-07] MEDS: GLUCERNA SHAKE 237 ML CAN PO SCH ×2 (08:52→20:30)
[2021-02-07] MEDS: BENZONATATE 100 MG CAP PO PRN ×2 (09:01→20:18)
--- NOTE | 2021-02-07 12:33 | P.PN ---
Subjective Date of Service: 02/07/21 Chief Complaint: covid pneumonia Patient is subjectively feeling better still on high concentrations of oxygen Review of Systems General: Weakness Respiratory: Shortness of Breath Physical Examination - Vital Signs Temperature: 97.1 F Blood Pressure: 107/66 Pulse: 78 Respirations: 18 Pulse Ox (%): 95 - Physical Exam General: Alert, Oriented x3, Cooperative Assessment & Plan - Problems (Diagnosis) (1) Pneumonia due to COVID-19 virus Current Visit: Yes Status: Acute Plan: Respiratory failure subjectively feeling better labs chemistries reviewed recheck CRP chest x-ray patient is not on Barcitinib not sure why still 100% 15 L chest x-ray ordered
--- NOTE | 2021-02-07 14:22 | RAD REPORT ---
EXAM DESCRIPTION: RAD - Chest Single View - 02/07/2021 1:54 pm CLINICAL HISTORY: Coronavirus pneumonia COMPARISON: February 02 TECHNIQUE: AP portable chest image was obtained 02/07/2021 1:54 pm . FINDINGS: Lung volumes are low. Interstitial and alveolar opacities have shown substantial improveme nt since February 02 imaging. No failure or volume overload suspected. Right-sided PICC line remains in place. Heart and vasculature are normal. No measurable pleural effusion and no pneumothorax. No ac alturas bony abnormality seen. No acute aortic findings suspected. IMPRESSION: Substantial but incomplete clearing of bilateral COVID-19 pneumonia.
--- NOTE | 2021-02-07 16:33 | P.PN ---
Subjective Date of Service: 02/07/21 Chief Complaint: covid pneumonia Patient not tolerating high-flow oxygen. She is sometimes need 100% non- rebreather mask to the high-flow oxygen. Physical Examination - Vital Signs Temperature: 97.1 F Blood Pressure: 107/66 Pulse: 78 Respirations: 18 Pulse Ox (%): 95 - Physical Exam General: Alert, In no apparent distress, Oriented x3 Neck: JVD not distended Respiratory: Other (Nonlabored breathing) Cardiovascular: Regular rate/rhythm, Normal S1 S2 Gastrointestinal: Soft and benign, Non-distended Musculoskeletal: No swelling Integumentary: No rashes Neurological: Normal strength at 5/5 x4 extr Assessment And Plan - Current Problems (Diagnosis) (1) Uncontrolled type 2 diabetes mellitus with hyperglycemia Current Visit: Yes Status: Acute (2) Acute respiratory failure with hypoxia Current Visit: Yes Status: Acute (3) Pneumonia due to COVID-19 virus Current Visit: Yes Status: Acute (4) Iron deficiency anemia Current Visit: Yes Status: Acute Physician Review Additional Text: Problem List Acute hypoxemic respiratory failure secondary to COVID-19 pneumonia Uncontrolled type 2 diabetes mellitus with hyperglycemia Iron deficiency anemia continue IV steroid Continue vitamin supplementation, continue baricitinib (started 01/26) sliding scale insulin and accuchecks, A1c >13.9. Titrate Lantus insulin for hyperglycemia. Wean oxygen as possible. Encouraged self proning Incentive spirometer DVT: Korito. Dispo: leather worker assisting with arrangement for LTAC placement.
[2021-02-07] MEDS: RIVAROXABAN 20 MG TABLET PO SCH (17:31)
[2021-02-08 05:23] LABS: Absolute Lymphocytes (CBC) 0.9 K/uL (0.7-4.9); Basophils % 0.2 % (0-1.3); Hematocrit 29.5 % (36.0-45.0); MPV 8.6 fL (7.6-11.3); RBC Red Blood Cell Count 3.66 M/uL (3.86-4.86)
[2021-02-08 05:41] LABS: ALT/SGPT 119 U/L (12-78); AST/SGOT 48 U/L (15-37); Albumin 2.7 g/dL (3.4-5.0); Alkaline Phosphatase 158 U/L (45-117); BUN Blood Urea Nitrogen 25 mg/dL (7-18); Bicarbonate 31 mmol/L (21-32); Bilirubin Total 0.5 mg/dL (0.2-1.0); Glucose Level 154 mg/dL (74-106); Potassium 4.4 mmol/L (3.5-5.1); Protein, Total 6.2 g/dL (6.4-8.2); Sodium Level 140 mmol/L (136-145)
[2021-02-08] MEDS: INSULIN -REGULAR HUMAN 50 UNIT/0.5 ML ML SQ SCH ×4 (07:30→21:37)
[2021-02-08] MEDS: THIAMINE HCL 100 MG TABLET PO SCH (07:54)
[2021-02-08] MEDS: VITAMIN D 1000 UNIT TAB PO SCH (07:54)
[2021-02-08] MEDS: FENOFIBRATE 160 MG TAB PO SCH (07:54)
[2021-02-08] MEDS: ASPIRIN EC 81 MG TAB PO SCH (07:55)
[2021-02-08] MEDS: ASCORBIC ACID 500 MG TABLET PO SCH ×4 (07:55→20:49)
[2021-02-08] MEDS: METHYLPREDNISOLONE 40 MG INJ IV SCH ×2 (07:55→20:48)
[2021-02-08] MEDS: ZINC SULFATE 220 MG CAP PO SCH (07:55)
[2021-02-08] MEDS: FERROUS SULFATE 325 MG TAB PO SCH ×2 (07:55→20:49)
[2021-02-08] MEDS: FAMOTIDINE 20 MG TAB PO SCH ×2 (07:55→20:49)
[2021-02-08] MEDS: GLUCERNA SHAKE 237 ML CAN PO SCH ×2 (07:56→20:47)
[2021-02-08] MEDS: INSULIN GLARGINE 100 UNITS/ML SQ SCH ×2 (07:59→21:37)
[2021-02-08] MEDS: BENZONATATE 100 MG CAP PO PRN ×2 (09:03→22:56)
--- NOTE | 2021-02-08 14:41 | P.PN ---
Subjective Date of Service: 02/08/21 Chief Complaint: covid pneumonia Patient is now tolerating 100% non-rebreather mask. Physical Examination - Vital Signs Temperature: 98 F Blood Pressure: 102/55 Pulse: 112 Respirations: 18 Pulse Ox (%): 96 - Physical Exam General: Alert, In no apparent distress Respiratory: Other (Nonlabored breathing) Cardiovascular: Regular rate/rhythm, Normal S1 S2 Gastrointestinal: Soft and benign, Non-distended Musculoskeletal: No swelling Integumentary: No rashes, No cyanosis Neurological: Normal strength at 5/5 x4 extr Assessment And Plan - Current Problems (Diagnosis) (1) Uncontrolled type 2 diabetes mellitus with hyperglycemia Current Visit: Yes Status: Acute (2) Acute respiratory failure with hypoxia Current Visit: Yes Status: Acute (3) Pneumonia due to COVID-19 virus Current Visit: Yes Status: Acute (4) Iron deficiency anemia Current Visit: Yes Status: Acute Physician Review Additional Text: Problem List Acute hypoxemic respiratory failure secondary to COVID-19 pneumonia Uncontrolled type 2 diabetes mellitus with hyperglycemia Iron deficiency anemia continue IV steroid Continue vitamin supplementation, continue baricitinib (started 01/26) sliding scale insulin and accuchecks, A1c >13.9. Titrate Lantus insulin for hyperglycemia. Wean oxygen as possible. Encouraged self proning Incentive spirometer Hemoglobin is stable. DVT: Xarelto. Dispo: aircraft layout worker assisting with arrangement for LTAC placement.
[2021-02-08] MEDS: RIVAROXABAN 20 MG TABLET PO SCH (16:20)
[2021-02-09 04:13] LABS: Absolute Lymphocytes (CBC) 0.8 K/uL (0.7-4.9); Basophils % 0.6 % (0-1.3); Lymphocytes % 7.3 % (15.3-44.8); MPV 8.7 fL (7.6-11.3); RBC Red Blood Cell Count 3.58 M/uL (3.86-4.86)
[2021-02-09 04:29] LABS: ALT/SGPT 121 U/L (12-78); AST/SGOT 42 U/L (15-37); Albumin 2.6 g/dL (3.4-5.0); Alkaline Phosphatase 158 U/L (45-117); BUN Blood Urea Nitrogen 24 mg/dL (7-18); Bicarbonate 31 mmol/L (21-32); Bilirubin Total 0.4 mg/dL (0.2-1.0); Glucose Level 172 mg/dL (74-106); Potassium 4.4 mmol/L (3.5-5.1); Protein, Total 6.2 g/dL (6.4-8.2); Sodium Level 141 mmol/L (136-145)
[2021-02-09] MEDS: INSULIN -REGULAR HUMAN 50 UNIT/0.5 ML ML SQ SCH ×4 (07:30→21:00)
[2021-02-09] MEDS: THIAMINE HCL 100 MG TABLET PO SCH (08:56)
[2021-02-09] MEDS: ZINC SULFATE 220 MG CAP PO SCH (08:57)
[2021-02-09] MEDS: FAMOTIDINE 20 MG TAB PO SCH ×2 (08:57→20:59)
[2021-02-09] MEDS: ASCORBIC ACID 500 MG TABLET PO SCH ×4 (08:57→20:59)
[2021-02-09] MEDS: VITAMIN D 1000 UNIT TAB PO SCH (08:57)
[2021-02-09] MEDS: METHYLPREDNISOLONE 40 MG INJ IV SCH ×2 (08:57→21:00)
[2021-02-09] MEDS: FENOFIBRATE 160 MG TAB PO SCH (08:57)
[2021-02-09] MEDS: FERROUS SULFATE 325 MG TAB PO SCH ×2 (08:57→20:59)
[2021-02-09] MEDS: GLUCERNA SHAKE 237 ML CAN PO SCH ×2 (08:58→20:59)
[2021-02-09] MEDS: ASPIRIN EC 81 MG TAB PO SCH (08:58)
[2021-02-09] MEDS: INSULIN GLARGINE 100 UNITS/ML SQ SCH ×2 (08:58→21:00)
--- NOTE | 2021-02-09 13:17 | P.PN ---
Subjective Date of Service: 02/09/21 Chief Complaint: covid pneumonia Patient is maintained on 100% non-rebreather mask. She has no complain. Physical Examination - Vital Signs Temperature: 97 F Blood Pressure: 102/59 Pulse: 18 Respirations: 18 Pulse Ox (%): 96 - Physical Exam General: In no apparent distress, Oriented x3 Neck: JVD not distended Respiratory: Other (Nonlabored breathing) Cardiovascular: Regular rate/rhythm, Normal S1 S2 Gastrointestinal: Soft and benign, Non-distended Musculoskeletal: No swelling Integumentary: No rashes Neurological: Normal strength at 5/5 x4 extr Assessment And Plan - Current Problems (Diagnosis) (1) Uncontrolled type 2 diabetes mellitus with hyperglycemia Current Visit: Yes Status: Acute (2) Acute respiratory failure with hypoxia Current Visit: Yes Status: Acute (3) Pneumonia due to COVID-19 virus Current Visit: Yes Status: Acute (4) Iron deficiency anemia Current Visit: Yes Status: Acute Physician Review Additional Text: Problem List Acute hypoxemic respiratory failure secondary to COVID-19 pneumonia Uncontrolled type 2 diabetes mellitus with hyperglycemia Iron deficiency anemia continue IV steroid Continue vitamin supplementation, completed baricitinib (started 01/26) Blood sugar readings within acceptable range Contain sliding scale insulin and accuchecks, A1c >13.9. Continue Lantus insulin. Wean oxygen as possible. Encouraged self proning Incentive spirometry Oral iron supplementation. DVT: Xarelto. Dispo: workers compensation administrator assisting with arrangement for LTAC placement.
[2021-02-09] MEDS: RIVAROXABAN 20 MG TABLET PO SCH (16:39)
[2021-02-10] MEDS: INSULIN -REGULAR HUMAN 50 UNIT/0.5 ML ML SQ SCH ×4 (07:30→22:33)
[2021-02-10] MEDS: FAMOTIDINE 20 MG TAB PO SCH ×2 (08:21→20:00)
[2021-02-10] MEDS: VITAMIN D 1000 UNIT TAB PO SCH (08:21)
[2021-02-10] MEDS: METHYLPREDNISOLONE 40 MG INJ IV SCH ×2 (08:21→20:00)
[2021-02-10] MEDS: FERROUS SULFATE 325 MG TAB PO SCH ×2 (08:22→20:01)
[2021-02-10] MEDS: ZINC SULFATE 220 MG CAP PO SCH (08:22)
[2021-02-10] MEDS: INSULIN GLARGINE 100 UNITS/ML SQ SCH ×3 (08:22→22:32)
[2021-02-10] MEDS: THIAMINE HCL 100 MG TABLET PO SCH (08:22)
[2021-02-10] MEDS: ASPIRIN EC 81 MG TAB PO SCH (08:22)
[2021-02-10] MEDS: ASCORBIC ACID 500 MG TABLET PO SCH ×4 (08:23→20:00)
[2021-02-10] MEDS: GLUCERNA SHAKE 237 ML CAN PO SCH ×2 (08:23→20:01)
--- NOTE | 2021-02-10 16:28 | P.PN ---
Subjective Date of Service: 02/10/21 Chief Complaint: covid pneumonia Patient is maintained on 100% non-rebreather mask. No private branch exchange service adviser several days. She has no complain. Physical Examination - Vital Signs Temperature: 96.1 F Blood Pressure: 100/63 Pulse: 92 Respirations: 20 Pulse Ox (%): 94 - Physical Exam General: In no apparent distress, Oriented x3 Neck: JVD not distended Respiratory: Other (Nonlabored breathing) Cardiovascular: No edema, Regular rate/rhythm, Normal S1 S2 Gastrointestinal: Soft and benign, Non-distended Musculoskeletal: No swelling Neurological: Normal strength at 5/5 x4 extr Assessment And Plan - Current Problems (Diagnosis) (1) Uncontrolled type 2 diabetes mellitus with hyperglycemia Current Visit: Yes Status: Acute (2) Acute respiratory failure with hypoxia Current Visit: Yes Status: Acute (3) Pneumonia due to COVID-19 virus Current Visit: Yes Status: Acute (4) Iron deficiency anemia Current Visit: Yes Status: Acute Physician Review Additional Text: Problem List Acute hypoxemic respiratory failure secondary to COVID-19 pneumonia Uncontrolled type 2 diabetes mellitus with hyperglycemia Iron deficiency anemia continue IV steroid Continue vitamin supplementation, completed baricitinib (started 01/26) Blood sugar readings within acceptable range Contain sliding scale insulin and accuchecks. Continue Lantus insulin. Wean oxygen as possible. Incentive spirometry Oral iron supplementation. DVT: Xarelto. Dispo: ironworker apprentice shop assisting with arrangement for LTAC placement.
[2021-02-10] MEDS: RIVAROXABAN 20 MG TABLET PO SCH (17:00)
[2021-02-10] MEDS: BENZONATATE 100 MG CAP PO PRN (22:34)
--- NOTE | 2021-02-11 06:18 | P.PN ---
Subjective Date of Service: 02/11/21 Chief Complaint: covid pneumonia Subjective: Improving (feels slightly better each day over the last few days, able to tolerate more movement, doesn't desaturate as quickly, still requiring 100% NRB. denies dysuria, no chest pain, no diarrhea. appetite is good per patient) Review of Systems 10-point ROS is otherwise unremarkable Physical Examination - Vital Signs Temperature: 97.5 F Blood Pressure: 101/59 Pulse: 92 Respirations: 16 Pulse Ox (%): 92 Assessment & Plan Physician Review Additional Text: Physical Exam Gen: AAOx3, NAD HEENT: normal conjunctiva, sclera anicteric Pulm: nonlabored on NRB CV: regular rate/rhythm, no edema Abd: soft, nontender, nondistended MSK: no joint swelling Skin: no rash Problem List Acute hypoxemic respiratory failure secondary to COVID-19 pneumonia Uncontrolled type 2 diabetes mellitus with hyperglycemia Iron deficiency anemia continue steroids, vitamin supplementation, completed baricitinib (started 01/26) blood glc levels improved Contain sliding scale insulin and accuchecks. Continue Lantus, sliding scale, titrate as needed Wean oxygen as possible. inflammatory markers improved, d-dimer improved Incentive spirometry Oral iron supplementation. BP on low end, has been low-normal throughout hospitalization, continue to monitor. DVT: Xarelto. Dispo: farmworker fryer farm assisting with arrangement for LTAC placement. Time Spent Managing Pts Care (In Minutes): 35
[2021-02-11 07:14] LABS: Absolute Lymphocytes (CBC) 2.9 K/uL (0.7-4.9); Basophils % 0.2 % (0-1.3); Hematocrit 34.3 % (36.0-45.0); Lymphocytes % 15.5 % (15.3-44.8); MPV 8.6 fL (7.6-11.3); RBC Red Blood Cell Count 4.23 M/uL (3.86-4.86)
[2021-02-11] MEDS: INSULIN -REGULAR HUMAN 50 UNIT/0.5 ML ML SQ SCH ×4 (07:30→21:23)
[2021-02-11] MEDS: VITAMIN D 1000 UNIT TAB PO SCH (08:40)
[2021-02-11] MEDS: FAMOTIDINE 20 MG TAB PO SCH ×2 (08:42→21:21)
[2021-02-11] MEDS: INSULIN GLARGINE 100 UNITS/ML SQ SCH ×2 (08:43→21:00)
[2021-02-11] MEDS: METHYLPREDNISOLONE 40 MG INJ IV SCH ×2 (08:43→21:21)
[2021-02-11] MEDS: GLUCERNA SHAKE 237 ML CAN PO SCH ×2 (08:43→21:00)
[2021-02-11] MEDS: FERROUS SULFATE 325 MG TAB PO SCH ×2 (08:43→21:22)
[2021-02-11] MEDS: ASPIRIN EC 81 MG TAB PO SCH (08:43)
[2021-02-11] MEDS: ZINC SULFATE 220 MG CAP PO SCH (08:43)
[2021-02-11] MEDS: THIAMINE HCL 100 MG TABLET PO SCH (08:43)
[2021-02-11] MEDS: ASCORBIC ACID 500 MG TABLET PO SCH ×4 (08:44→21:22)
[2021-02-11 08:49] LABS: BUN Blood Urea Nitrogen 32 mg/dL (7-18); Bicarbonate 28 mmol/L (21-32); C-Reactive Protein 8.33 mg/L (<3.00); Ferritin 145.9 ng/mL (8-388); Glucose Level 197 mg/dL (74-106); Potassium 4.2 mmol/L (3.5-5.1); Sodium Level 140 mmol/L (136-145)
[2021-02-11] MEDS: RIVAROXABAN 20 MG TABLET PO SCH (17:06)
[2021-02-11] MEDS ORDERED: LORazepam 2 MG/ML VIAL IV SCH (20:00)
[2021-02-11] MEDS ORDERED: LORazepam 2 MG/ML VIAL IV PRN (22:41)
[2021-02-12 05:40] LABS: Basophils % 0.3 % (0-1.3); Hematocrit 31.3 % (36.0-45.0); Lymphocytes % 9.2 % (15.3-44.8); MPV 8.4 fL (7.6-11.3); RBC Red Blood Cell Count 3.83 M/uL (3.86-4.86)
[2021-02-12 06:04] LABS: BUN Blood Urea Nitrogen 30 mg/dL (7-18); Bicarbonate 29 mmol/L (21-32); Glucose Level 203 mg/dL (74-106); Magnesium 2.3 mg/dL (1.8-2.4); Potassium 4.4 mmol/L (3.5-5.1); Sodium Level 142 mmol/L (136-145)
--- NOTE | 2021-02-12 06:36 | P.PN ---
Subjective Date of Service: 02/12/21 Chief Complaint: covid pneumonia Subjective: Improving (Feeling better, tolerating food, voiding, had BM yesterday. No new complaints, reports has just been tired of being in the hospital for so long) Review of Systems 10-point ROS is otherwise unremarkable Physical Examination - Vital Signs Temperature: 97.0 F Blood Pressure: 100/64 Pulse: 107 Respirations: 20 Pulse Ox (%): 90 Assessment & Plan Physician Review Additional Text: Physical Exam Gen: AAOx3, NAD HEENT: normal conjunctiva, sclera anicteric Pulm: nonlabored on HFNC CV: regular rate/rhythm, no edema Abd: soft, nontender, nondistended MSK: no joint swelling Skin: no rash Problem List Acute hypoxemic respiratory failure secondary to COVID-19 pneumonia Uncontrolled type 2 diabetes mellitus with hyperglycemia Iron deficiency anemia Slowly improving Continue steroids, vitamin supplementation, completed baricitinib (started 01/26) blood glc levels improved Contain sliding scale insulin and accuchecks. Continue Lantus, sliding scale, titrate as needed Wean oxygen as possible. inflammatory markers improved Incentive spirometry Oral iron supplementation. BP on low end, has been low-normal throughout hospitalization, continue to monitor. DVT: Xarelto. Dispo: workers' compensation claims supervisor assisting with arrangement for LTAC placement. Time Spent Managing Pts Care (In Minutes): 35
[2021-02-12] MEDS: INSULIN -REGULAR HUMAN 50 UNIT/0.5 ML ML SQ SCH ×4 (07:30→21:13)
[2021-02-12 08:02] LABS: Anisocytosis 1+; Blood Morphology Comment NOTED (NOT SEEN); Platelet Estimate DECR; Polychromasia SLIGHT; White Blood Cell Scan OK (OK)
[2021-02-12] MEDS: THIAMINE HCL 100 MG TABLET PO SCH (08:53)
[2021-02-12] MEDS: FERROUS SULFATE 325 MG TAB PO SCH ×2 (08:54→21:11)
[2021-02-12] MEDS: VITAMIN D 1000 UNIT TAB PO SCH (08:54)
[2021-02-12] MEDS: METHYLPREDNISOLONE 40 MG INJ IV SCH ×2 (08:54→21:11)
[2021-02-12] MEDS: ASCORBIC ACID 500 MG TABLET PO SCH ×4 (08:54→21:11)
[2021-02-12] MEDS: INSULIN GLARGINE 100 UNITS/ML SQ SCH ×2 (08:54→21:00)
[2021-02-12] MEDS: ZINC SULFATE 220 MG CAP PO SCH (08:54)
[2021-02-12] MEDS: GLUCERNA SHAKE 237 ML CAN PO SCH ×2 (08:54→21:00)
[2021-02-12] MEDS: ASPIRIN EC 81 MG TAB PO SCH (08:54)
[2021-02-12] MEDS: FAMOTIDINE 20 MG TAB PO SCH ×2 (08:54→21:11)
[2021-02-12] MEDS: RIVAROXABAN 20 MG TABLET PO SCH (17:25)
[2021-02-12] MEDS: BENZONATATE 100 MG CAP PO PRN (21:15)
[2021-02-13 05:49] LABS: Basophils % 0.5 % (0-1.3); Hematocrit 30.9 % (36.0-45.0); MPV 8.2 fL (7.6-11.3); RBC Red Blood Cell Count 3.78 M/uL (3.86-4.86)
[2021-02-13 05:54] LABS: BUN Blood Urea Nitrogen 27 mg/dL (7-18); Bicarbonate 31 mmol/L (21-32); Glucose Level 177 mg/dL (74-106); Magnesium 2.3 mg/dL (1.8-2.4); Potassium 4.2 mmol/L (3.5-5.1); Sodium Level 142 mmol/L (136-145)
--- NOTE | 2021-02-13 06:34 | P.PN ---
Subjective Date of Service: 02/13/21 Chief Complaint: covid pneumonia Subjective: No new changes (feels like continuing to slowly improve, able to move easier, not as labored. tolerating PO) Review of Systems 10-point ROS is otherwise unremarkable Physical Examination - Vital Signs Temperature: 98.1 F Blood Pressure: 116/58 Pulse: 111 Respirations: 20 Pulse Ox (%): 98 Assessment & Plan Physician Review Additional Text: Physical Exam Gen: AAOx3, NAD HEENT: normal conjunctiva, sclera anicteric Pulm: nonlabored on NC/NRB CV: regular rate/rhythm, no edema Abd: soft, nontender, nondistended MSK: no joint swelling Skin: no rash Problem List Acute hypoxemic respiratory failure secondary to COVID-19 pneumonia Uncontrolled type 2 diabetes mellitus with hyperglycemia Iron deficiency anemia Slowly improving Continue steroids, vitamin supplementation, completed baricitinib (started 01/26) blood glc levels improved Contain sliding scale insulin and accuchecks. Continue Lantus, sliding scale, titrate as needed Wean oxygen as possible. inflammatory markers improved Incentive spirometry Oral iron supplementation. BP on low end, has been low-normal throughout hospitalization, continue to monitor. DVT: Xarelto. Dispo: pet care worker assisting with arrangement for LTAC placement. possibly in the next few days Time Spent Managing Pts Care (In Minutes): 35
[2021-02-13] MEDS: INSULIN -REGULAR HUMAN 50 UNIT/0.5 ML ML SQ SCH ×4 (07:30→21:00)
--- NOTE | 2021-02-13 07:31 | RAD REPORT ---
EXAM DESCRIPTION: RAD - Chest Single View - 02/13/2021 4:54 am CLINICAL HISTORY: Persistent hypoxia, Covid COMPARISON: February 07 TECHNIQUE: AP portable chest image was obtained 02/13/2021 4:54 am . FINDINGS: Lung volumes are low. Bilateral airspace opacification is present similar or perhaps sligh tly worse than prior imaging. No improvement is seen. PICC line is unchanged. Heart and vasculature are normal. No measurable pleural effusion and no pneumothorax. No acute bony abnormality seen. No acute aortic findings suspected. IMPRESSION: Moderate bilateral pneumonia findings similar or slightly worse than prior imaging.
[2021-02-13] MEDS: GLUCERNA SHAKE 237 ML CAN PO SCH ×2 (09:00→19:56)
[2021-02-13] MEDS: INSULIN GLARGINE 100 UNITS/ML SQ SCH ×2 (09:00→21:00)
[2021-02-13] MEDS: ASCORBIC ACID 500 MG TABLET PO SCH ×4 (09:13→19:55)
[2021-02-13] MEDS: METHYLPREDNISOLONE 40 MG INJ IV SCH ×2 (09:13→19:57)
[2021-02-13] MEDS: VITAMIN D 1000 UNIT TAB PO SCH (09:13)
[2021-02-13] MEDS: ZINC SULFATE 220 MG CAP PO SCH (09:14)
[2021-02-13] MEDS: FERROUS SULFATE 325 MG TAB PO SCH ×2 (09:14→19:55)
[2021-02-13] MEDS: THIAMINE HCL 100 MG TABLET PO SCH (09:14)
[2021-02-13] MEDS: FAMOTIDINE 20 MG TAB PO SCH ×2 (09:14→19:55)
[2021-02-13] MEDS: ASPIRIN EC 81 MG TAB PO SCH (09:14)
[2021-02-13] MEDS ORDERED: RIVAROXABAN 20 MG TABLET PO SCH (17:00)
[2021-02-13] MEDS: BENZONATATE 100 MG CAP PO PRN (19:55)
[2021-02-14 06:20] LABS: BUN Blood Urea Nitrogen 27 mg/dL (7-18); Bicarbonate 32 mmol/L (21-32); C-Reactive Protein 9.23 mg/L (<3.00); Glucose Level 144 mg/dL (74-106); Magnesium 2.3 mg/dL (1.8-2.4); Potassium 4.1 mmol/L (3.5-5.1); Sodium Level 145 mmol/L (136-145)
[2021-02-14] MEDS: INSULIN -REGULAR HUMAN 50 UNIT/0.5 ML ML SQ SCH ×3 (07:30→16:30)
[2021-02-14] MEDS: GLUCERNA SHAKE 237 ML CAN PO SCH (09:00)
[2021-02-14] MEDS: ASPIRIN EC 81 MG TAB PO SCH (09:08)
[2021-02-14] MEDS: METHYLPREDNISOLONE 40 MG INJ IV SCH (09:08)
[2021-02-14] MEDS: FERROUS SULFATE 325 MG TAB PO SCH (09:08)
[2021-02-14] MEDS: ASCORBIC ACID 500 MG TABLET PO SCH ×2 (09:08→13:33)
[2021-02-14] MEDS: VITAMIN D 1000 UNIT TAB PO SCH (09:08)
[2021-02-14] MEDS: ZINC SULFATE 220 MG CAP PO SCH (09:08)
[2021-02-14] MEDS: THIAMINE HCL 100 MG TABLET PO SCH (09:08)
[2021-02-14] MEDS: FAMOTIDINE 20 MG TAB PO SCH (09:08)
[2021-02-14] MEDS: INSULIN GLARGINE 100 UNITS/ML SQ SCH (09:09)
[2021-02-14 09:13] LABS: Basophils % 0.4 % (0-1.3); Hematocrit 31.2 % (36.0-45.0); Lymphocytes % 10.8 % (15.3-44.8); MPV 8.6 fL (7.6-11.3); RBC Red Blood Cell Count 3.78 M/uL (3.86-4.86)
[2021-02-14 10:42] VITALS: O2SAT 100
[2021-02-14 10:50] LABS: Anisocytosis 1+; Blood Morphology Comment NOTED (NOT SEEN); Platelet Estimate DECR
--- NOTE | 2021-02-14 16:36 | P.DS ---
Admission Date: 01/23/21 Discharge Date: 02/14/21 Disposition: [facility] Discharge Condition: FAIR Reason for Admission: covid pneumonia Consultations: Pulmonology - Dr. Parisi Procedures: CXR (01/23): Extensive bilateral pulmonary opacities are present likely indicating underlying pneumonia or COVID-19. The heart is normal in size. No displaced fractures. CTA Chest (01/23): IMPRESSION: 1. Extensive bilateral groundglass opacities with multifocal consolidation. Small left pleural effusion. Findings are suggestive of atypical/multifocal pneumonia and compatible with Covid. 2. Prominent/mildly enlarged mediastinal lymph nodes which may be reactive. 3. No evidence of pulmonary embolism. CXR (01/27): IMPRESSION: Extensive bilateral, left greater than right, COVID-19 pneumonia. Findings are not significantly different since January 23. CXR (01/31): PICC line with its tip in the superior vena cava CXR (02/01): IMPRESSION: Mild improvement bilateral pulmonary opacities probably pneumonia Small lucencies within upper hemithoraces bilaterally may represent normal aerated lung or small pneumothoraces. This can be evaluated on subsequent examination with the patient in expiration. CXR (02/02): IMPRESSION: Unchanged severe bilateral airspace disease concerning for multifocal pneumonia. No pneumothorax identified. CXR (02/07): IMPRESSION: Substantial but incomplete clearing of bilateral COVID-19 pneumoni a. CXR (02/13): FINDINGS: Lung volumes are low. Bilateral airspace opacification is present similar or perhaps slightly worse than prior imaging. No improvement is seen. PICC line is unchanged. Heart and vasculature are normal. No measurable pleural effusion and no pneumothorax. No acute bony abnormality seen. No acute aortic findings suspected. IMPRESSION: Moderate bilateral pneumonia findings similar or slightly worse than prior imaging. Problem List Acute hypoxemic respiratory failure secondary to COVID-19 pneumonia Uncontrolled type 2 diabetes mellitus with hyperglycemia Iron deficiency anemia Brief History of Present Illness: 50 yo F who presents with general malaise and diarrhea, and RA sats of 47% and T103F on arrival. Her symptoms began a few days ago and she was diagnosed with COVID around the same time. She came today because her daughter wanted her to get checked out. Reports poor appetite. Denies SOB, cough, N/V. CT showed extensive bilateral ground glass opacities with multifocal consolidation and small left pleural effusion, findings suggestive of atypical/multifocal pneumoni a and compatible with covid. No evidence of pulmonary embolism. WBC 12.1, H/H 10.5, MCV 78.8, Na 128, Cl 96, GFR 49, Glu 356, Lactate 2.3, CRP 238, BNP 1149, procal 0.32. Received sepsis protocol fluid bolus, ceftriaxone and azithromycin and steroids in the ED. Hospital Course: Patient was treated with steroids, baracitinib, vitamin supplementation, and oxygen supplementation. She had gradual improvement of her symptoms and then minimally progressed once she was on 15L non-rebreather. She remained stable for several days needing 15L. She was transferred to [facility] to continue treatment. She was noted to have a mild microcytic anemia and found to have severe iron deficiency anemia. She received IV iron during her hospitalization. Follow up with Dr. Parisi (Pulmonology) ~1 week after discharge. On day of discharge patient was tolerating diabetic diet, urinating and having regular bowel movements. She was not getting out of bed much due to dyspnea. Vital Signs/Physical Exam: Physical Exam Gen: AAOx3, NAD HEENT: normal conjunctiva, sclera anicteric Pulm: nonlabored on non-rebreather CV: regular rate/rhythm, no edema Abd: soft, nontender, nondistended MSK: no joint swelling Temp Pulse Resp BP Pulse Ox 97 F 91 H 20 128/72 98 02/14/21 12:00 02/14/21 12:00 02/14/21 12:00 02/14/21 12:00 02/14/21 12:00 Laboratory Data at Discharge: WBC 9.20 K/uL (4.3-10.9) 02/14/21 05:00 Hgb 9.6 g/dL (12.0-15.0) L 02/14/21 05:00 Hct 31.2 % (36.0-45.0) L 02/14/21 05:00 Plt Count 147 K/uL (152-406) L 02/14/21 05:00 PT 15.4 SECONDS (9.5-12.5) H 01/23/21 00:09 INR 1.34 01/23/21 00:09 Sodium 145 mmol/L (136-145) 02/14/21 05:00 Potassium 4.1 mmol/L (3.5-5.1) 02/14/21 05:00 BUN 27 mg/dL (7-18) H 02/14/21 05:00 Creatinine 0.33 mg/dL (0.55-1.3) L 02/14/21 05:00 Glucose 144 mg/dL (74-106) H 02/14/21 05:00 Phosphorus 2.8 mg/dL (2.5-4.9) D 01/26/21 06:00 Magnesium 2.3 mg/dL (1.8-2.4) 02/14/21 05:00 Total Bilirubin 0.4 mg/dL (0.2-1.0) 02/09/21 03:55 AST 42 U/L (15-37) H 02/09/21 03:55 ALT 121 U/L (12-78) H 02/09/21 03:55 Alkaline Phosphatase 158 U/L (45-117) H 02/09/21 03:55 Triglycerides 192 mg/dL (<150) H 01/24/21 05:03 Cholesterol 164 mg/dL (<200) 01/24/21 05:03 HDL Cholesterol 23 mg/dL (40-60) L 01/24/21 05:03 Cholesterol/HDL Ratio 7.13 01/24/21 05:03 Home Medications: NK [No Home Meds] 02/04/21 Followup: NONE,NONE [Primary Care Provider] - Time spent managing pt's care (in minutes): 40
[2021-02-14 17:38] VITALS: BP 103/55; TEMP 97.6
== END 2021-02-14 17:19 | DRG 177 ==
LOC: EDSEX 22:57 → ER 22:57 → ERHOLD 01-23 02:25 → 3RD-ICU 01-23 14:04 → 4TH 01-25 13:30
PROVIDERS: ADMIT Internal Medicine; ATTEND Hospitalist
PROC: 02HV33Z Insertion of Infusion Device into Superior Vena Cava, Percutaneous Approach (ICD-10-PCS; 2021-01-31)
PROC: 5A09357 Assistance with Respiratory Ventilation, Less than 24 Consecutive Hours, Continuous Positive Airway Pressure (ICD-10-PCS; principal; 2021-02-06)
DX: U07.1 COVID-19 (principal); J12.82 Pneumonia due to coronavirus disease 2019; J96.01 Acute respiratory failure with hypoxia; R73.9 Hyperglycemia, unspecified; D50.9 Iron deficiency anemia, unspecified; E11.65 Type 2 diabetes mellitus with hyperglycemia
CPT/HCPCS: 36415; 36569; 71045; 71275; 80048; 80053; 80061; 80076; 81003; 81015; 82607; 82728; 82746; 82805; 82947; 83036; 83540; 83605; 83735; 83880; 84100; 84145; 84439; 84443; 84466; 84484; 85025; 85379; 85610; 86140; 87040; 93005; 94660; 94760; 96374; 96375; 99285; J0456; J0610; J1815; J2920; J2930; J7030; J7040; J7050; Q9967; U0003